=== PATIENT | female | born 1990 | race Caucasian/White ===

== ENCOUNTER 2021-06-25 18:39 | Inpatient (IN) | payer OTHER, SELFPAY ==
[2021-06-25] MEDS: traZODone HCL 100 MG TABLET 200 MG PO (21:12)
[2021-06-25] MEDS: Melatonin 3 MG TABLET 9 MG PO (21:13)
[2021-06-25] MEDS: Gabapentin 600 MG TABLET PO (21:13)
[2021-06-25 21:14] VITALS: BP 111/67; PULSE 81
[2021-06-25] MEDS: Prazosin HCL 1 MG CAPSULE 2 MG PO (21:14)
[2021-06-25 21:15] VITALS: BP 111/67; PULSE 81
[2021-06-25] MEDS: Propranolol HCL 20 MG TABLET PO (21:15)
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
[2021-06-26] MEDS: hydrOXYzine HCL 25 MG TABLET PO (00:17)
[2021-06-26] MEDS: traZODone HCL 100 MG TABLET 200 MG PO ×2 (03:52→20:09)
--- NOTE | 2021-06-26 05:26 | PC.NURSE ---
Patient up all shift pacing halls. At one point she was banging head and fist against kitchen windows. MD notified of behavior and was asked for something for sleep/agitation. He did not respond. Patient was medicated with Trazadone with good effect.
[2021-06-26 06:00] VITALS: BP 107/67; PULSE 107; RESP 18; O2SAT 98
[2021-06-26] MEDS: Cholecalciferol (Vitamin D3) 25 MCG TABLET 50 MCG PO (08:54)
[2021-06-26 08:55] VITALS: BP 107/67; PULSE 107
[2021-06-26] MEDS: Fludrocortisone Acetate 0.1 MG TABLET PO (08:55)
[2021-06-26] MEDS: Gabapentin 600 MG TABLET PO ×2 (08:55→20:10)
[2021-06-26] MEDS: Propranolol HCL 20 MG TABLET PO ×2 (08:55→20:14)
[2021-06-26] MEDS: Omeprazole 20 MG CAPSULE.DR PO (08:55)
[2021-06-26] MEDS: Sennosides 8.6 MG TABLET PO (08:55)
[2021-06-26] MEDS: ARIPiprazole 30 MG TABLET PO (08:55)
--- NOTE | 2021-06-26 09:58 | PC.NURSE ---
Amanda declined offer for nicotine patch and requested PRN nicotine gum.
[2021-06-26] MEDS: Nicotine Polacrilex 2 MG GUM BUCCAL (10:10)
[2021-06-26] MEDS: chlorproMAZINE HCl 25 MG TABLET PO ×2 (10:10→16:15)
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
[2021-06-26] MEDS: LORazepam 2 MG/ML VIAL IM (16:40)
[2021-06-26] MEDS: diphenhydrAMINE HCL 50 MG/ML VIAL IM (16:40)
[2021-06-26] MEDS: Haloperidol Lactate 5 MG/ML VIAL IM (16:40)
--- NOTE | 2021-06-26 17:46 | P.EN_ITS ---
Event Note Date of Service: 06/26/21 Event Note: Patient seen and M5, she had a medication restrained received Hald ol, and Ativan On examination patient awake alert, offers no acute complaints, talking in full sentences No respiratory distress noted
--- NOTE | 2021-06-26 18:17 | PC.NURSE ---
Pt was at the patient phones on a phone call when she started to bang her head on the kitchen windows. Unsure of the news she recieved that was upsetting. Staff attempted to re-direct, offered PRNs, and she pushed back stating get away from me! . Pt started to then punch the windows of the kitchen. Staff went hands on to stop her attempts to harm herself. Security was called up to assist. The medication reconciliation technician MD was notified and medications were ordered. Pt put in a 4 point restraint at 1625. Medications were administered at 1640 to the right and left deltoid. Vitals started and WNL. Pt released from restraints at 1655. In behavioral control. Hospitalist notified at 1650 and assessed within the hour. Will continue to monitor. Pt stated that she does not want us to contact anyone about the restraint.
[2021-06-26 20:08] VITALS: BP 113/58; PULSE 84
[2021-06-26] MEDS: Prazosin HCL 1 MG CAPSULE 2 MG PO (20:08)
[2021-06-26] MEDS: Melatonin 3 MG TABLET 9 MG PO (20:08)
[2021-06-26] MEDS: OXcarbazepine 300 MG TABLET PO (20:10)
[2021-06-26 20:14] VITALS: BP 101/64; PULSE 94
[2021-06-26 20:28] VITALS: BP 113/58; PULSE 84; TEMP 36.9
[2021-06-27] VITALS (7 sets, daily range): BP systolic 98–148; BP diastolic 62–82; PULSE 86–103; RESP 16; TEMP 35.8–36.6; O2SAT 96–97
[2021-06-27] MEDS: HaloperidoL 5 MG TABLET PO ×3 (02:11→15:06)
[2021-06-27] MEDS: LORazepam 1 MG TABLET 2 MG PO ×3 (02:11→15:05)
[2021-06-27] MEDS: Cholecalciferol (Vitamin D3) 25 MCG TABLET 50 MCG PO (08:03)
[2021-06-27] MEDS: OXcarbazepine 300 MG TABLET PO (08:03)
[2021-06-27] MEDS: Omeprazole 20 MG CAPSULE.DR PO (08:03)
[2021-06-27] MEDS: ARIPiprazole 30 MG TABLET PO (08:04)
[2021-06-27] MEDS: Fludrocortisone Acetate 0.1 MG TABLET PO (08:04)
[2021-06-27] MEDS: Propranolol HCL 20 MG TABLET PO ×3 (08:04→22:02)
[2021-06-27] MEDS: Sennosides 8.6 MG TABLET PO (08:04)
[2021-06-27] MEDS: Gabapentin 600 MG TABLET PO ×2 (08:04→21:58)
[2021-06-27] MEDS: Benztropine Mesylate 0.5 MG TABLET PO ×2 (08:13→15:06)
[2021-06-27 10:37] LABS: Cholesterol 129 mg/dL; HDL Cholesterol 57 mg/dL; LDL Cholesterol Calculated 64 mg/dl; Triglycerides 40 mg/dL
[2021-06-27] MEDS: Haloperidol Lactate 5 MG/ML VIAL IM (10:46)
[2021-06-27] MEDS: diphenhydrAMINE HCL 50 MG/ML VIAL IM (10:46)
[2021-06-27] MEDS: LORazepam 2 MG/ML VIAL IM ×2 (10:48→18:10)
[2021-06-27 10:57] LABS: Estimated Average Glucose 88 mg/dL; Hemoglobin A1c % 4.7 %
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
--- NOTE | 2021-06-27 10:59 | P.EN_ITS ---
Event Note Date of Service: 06/27/21 Event Note: pt superficially self harmed; difficult to redirect and then sudde nly became very dysregulated. Multiple attempts made to redirect, however, pt escalted and needed both physical and chemical restraint for safety. Given Haldol 5mg, ativan 2mg and bendryl 50mg IM
[2021-06-27 11:00] LABS: Thyroid Stimulating Hormone 0.54 uIU/mL (0.32-4.0)
[2021-06-27] MEDS: OLANZapine 5 MG TABLET PO (14:13)
[2021-06-27] MEDS: chlorproMAZINE HCl 100 MG TABLET PO (17:29)
--- NOTE | 2021-06-27 18:04 | PM.EVENT ---
Event Note Date of Service: 06/27/21 Event Note: pt again became agitated, unsafe and unable to redirected; pt needed IM medication. Tried IM Zyprexa 10mg and ativan 2mg IM since haldol only partially effective last time
[2021-06-27] MEDS: OLANZapine 10 MG VIAL IM (18:10)
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
[2021-06-27] MEDS: Melatonin 3 MG TABLET 9 MG PO (21:58)
[2021-06-27] MEDS: Prazosin HCL 1 MG CAPSULE PO (21:58)
[2021-06-27] MEDS: traZODone HCL 100 MG TABLET 200 MG PO (21:59)
[2021-06-28] MEDS: LORazepam 1 MG TABLET 2 MG PO ×2 (01:06→07:30)
[2021-06-28] MEDS: HaloperidoL 5 MG TABLET PO ×2 (01:06→07:25)
[2021-06-28] MEDS: traZODone HCL 50 MG TABLET PO (01:44)
[2021-06-28 06:00] VITALS: BP 98/60; PULSE 109; TEMP 36.4; O2SAT 98
[2021-06-28] MEDS: Acetaminophen 325 MG TABLET 650 MG PO (07:23)
[2021-06-28] MEDS: OLANZapine 5 MG TABLET PO ×2 (07:24→14:24)
[2021-06-28] MEDS: Sennosides 8.6 MG TABLET PO (07:24)
[2021-06-28] MEDS: Fludrocortisone Acetate 0.1 MG TABLET PO (07:24)
[2021-06-28] MEDS: Gabapentin 600 MG TABLET PO ×2 (07:24→19:39)
[2021-06-28] MEDS: Cholecalciferol (Vitamin D3) 25 MCG TABLET 50 MCG PO (07:25)
[2021-06-28] MEDS: ARIPiprazole 30 MG TABLET PO (07:25)
[2021-06-28] MEDS: Omeprazole 20 MG CAPSULE.DR PO (07:25)
--- NOTE | 2021-06-28 08:35 | PC.NURSE ---
restraint-patient was placed in 4 point restraint at 0800. On rising mood was stable and patient was responding well to staff. At change of shift a new patient observer was assigned to her care, a person older than her. Patient became verbally abusive to observer calling her names and when re directed attempted to shove a laundry hamper at her, following that behavior and when observer was being switched out patient went to group room end of hallway and pulled cover off of fire alarm setting alarm off. Patient continued with behavior hitting mera in hallway and then screen in room. Patient also threw trash can and kicked out at staff. Pt reporting ''I don't want a person watching me'' Verbally threatening to a female peer. Due to continued behavior was placed in restraints. Pt is currently in restraints and being assessed by psychiatrist.
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
--- NOTE | 2021-06-28 09:48 | PM.EVENT ---
Event Note Date of Service: 06/28/21 Event Note: Patient got agitated and dysregulated this morning needing physical restraint; she could not be redirected. However she was able to calm down without p.r.n. medications. Wreath And Garland Maker examined patient during and after and patient was able to return to baseline.
[2021-06-28 10:37] VITALS: BP 120/70; PULSE 85
[2021-06-28] MEDS: Propranolol HCL 20 MG TABLET PO ×3 (10:37→19:39)
[2021-06-28] MEDS: Methylphenidate HCl 5 MG TABLET PO ×2 (11:10→14:25)
[2021-06-28 14:25] VITALS: BP 108/62; PULSE 95
[2021-06-28 17:09] VITALS: BP 103/66; PULSE 93
[2021-06-28] MEDS: traZODone HCL 100 MG TABLET 200 MG PO ×2 (19:38→23:53)
[2021-06-28 19:39] VITALS: BP 103/66; PULSE 93
[2021-06-28] MEDS: Prazosin HCL 1 MG CAPSULE PO (19:39)
[2021-06-28] MEDS: Melatonin 3 MG TABLET 9 MG PO (19:40)
[2021-06-29] VITALS (9 sets, daily range): BP systolic 102–127; BP diastolic 60–90; PULSE 62–112; RESP 18–20; TEMP 36.6–36.7; O2SAT 97–99
[2021-06-29] MEDS: HaloperidoL 5 MG TABLET PO ×2 (02:23→17:28)
[2021-06-29] MEDS: LORazepam 1 MG TABLET 2 MG PO ×2 (02:23→17:28)
[2021-06-29] MEDS: hydrOXYzine HCL 25 MG TABLET PO (02:23)
[2021-06-29] MEDS: Gabapentin 600 MG TABLET PO ×2 (08:26→20:17)
[2021-06-29] MEDS: Sennosides 8.6 MG TABLET PO (08:26)
[2021-06-29] MEDS: Cholecalciferol (Vitamin D3) 25 MCG TABLET 50 MCG PO (08:26)
[2021-06-29] MEDS: OLANZapine 5 MG TABLET PO (08:26)
[2021-06-29] MEDS: Omeprazole 20 MG CAPSULE.DR PO (08:27)
[2021-06-29] MEDS: Methylphenidate HCl 5 MG TABLET PO ×3 (08:27→14:06)
[2021-06-29] MEDS: Fludrocortisone Acetate 0.1 MG TABLET PO (08:27)
[2021-06-29] MEDS: ARIPiprazole 30 MG TABLET PO (08:27)
[2021-06-29] MEDS: Propranolol HCL 20 MG TABLET PO ×3 (08:52→20:17)
[2021-06-29 09:06] LABS: Folate 10.8 ng/mL (> or = 4.0); Vitamin B12 328 pg/mL (200-900)
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
--- NOTE | 2021-06-29 15:21 | PM.EVENT ---
Event Note Date of Service: 06/27/21 Event Note: Patient was seen around 19:00pm Patient seen and examined and vitals are stable. Received Zyprexa 10 mg Ativan 2 mg for restrain-seen within 1 hour and patient seems to be alert oriented and moving all extremities and feeling fine, following commands and answering questions. Restrain paper signed
[2021-06-29] MEDS: Prazosin HCL 1 MG CAPSULE PO ×3 (17:06→20:18)
[2021-06-29] MEDS: Melatonin 3 MG TABLET 9 MG PO (20:15)
--- NOTE | 2021-06-29 21:19 | PM.EVENT ---
Event Note Date of Service: 06/29/21 Event Note: [id number] evaluation: Patient was agitated around 7:00 p.m. 06/29/2021. Patient was placed on four-point restraint. I went in to speak to the patient; denies any complaints/pain. Spoke To the RN patient safety precautions.
[2021-06-30] MEDS: LORazepam 1 MG TABLET 2 MG PO (03:18)
[2021-06-30] MEDS: HaloperidoL 5 MG TABLET PO (03:19)
[2021-06-30 06:00] VITALS: BP 102/57; PULSE 62; RESP 18; TEMP 36.2; O2SAT 98
[2021-06-30] MEDS: Omeprazole 20 MG CAPSULE.DR PO (06:51)
[2021-06-30] MEDS: OLANZapine 5 MG TABLET PO ×2 (08:51→14:26)
[2021-06-30] MEDS: Fludrocortisone Acetate 0.1 MG TABLET PO (08:51)
[2021-06-30] MEDS: Sennosides 8.6 MG TABLET PO (08:52)
[2021-06-30] MEDS: ARIPiprazole 30 MG TABLET PO (08:52)
[2021-06-30] MEDS: Cholecalciferol (Vitamin D3) 25 MCG TABLET 50 MCG PO (08:52)
[2021-06-30] MEDS: Gabapentin 600 MG TABLET PO ×2 (08:52→20:51)
[2021-06-30] MEDS: Methylphenidate HCl 5 MG TABLET PO ×3 (08:52→14:34)
[2021-06-30 10:29] VITALS: BP 94/56; PULSE 92
[2021-06-30 14:27] VITALS: BP 112/77; PULSE 98
[2021-06-30] MEDS: Propranolol HCL 20 MG TABLET PO ×2 (14:27→20:50)
[2021-06-30] MEDS: chlorproMAZINE HCl 100 MG TABLET PO (16:20)
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
[2021-06-30 18:00] VITALS: BP 105/69; PULSE 74; TEMP 37.3
[2021-06-30 20:49] VITALS: BP 105/69; PULSE 74
[2021-06-30] MEDS: Prazosin HCL 1 MG CAPSULE PO (20:49)
[2021-06-30 20:50] VITALS: BP 105/69; PULSE 74
[2021-06-30] MEDS: traZODone HCL 100 MG TABLET 200 MG PO (20:51)
[2021-06-30] MEDS: Melatonin 3 MG TABLET 9 MG PO (20:51)
[2021-07-01] MEDS: traZODone HCL 100 MG TABLET 200 MG PO ×2 (01:15→20:35)
[2021-07-01] MEDS: HaloperidoL 5 MG TABLET PO (04:03)
[2021-07-01] MEDS: LORazepam 1 MG TABLET 2 MG PO (04:03)
[2021-07-01 06:00] VITALS: BP 108/63; PULSE 83; TEMP 36.9; O2SAT 97
[2021-07-01] MEDS: Omeprazole 20 MG CAPSULE.DR PO (06:31)
[2021-07-01] MEDS: Fludrocortisone Acetate 0.1 MG TABLET PO (08:06)
[2021-07-01 08:07] VITALS: BP 108/62; PULSE 94
[2021-07-01] MEDS: Propranolol HCL 20 MG TABLET PO (08:07)
[2021-07-01] MEDS: ARIPiprazole 30 MG TABLET PO (08:08)
[2021-07-01] MEDS: OLANZapine 5 MG TABLET PO ×2 (08:08→15:07)
[2021-07-01] MEDS: Sennosides 8.6 MG TABLET PO (08:08)
[2021-07-01] MEDS: Cholecalciferol (Vitamin D3) 25 MCG TABLET 50 MCG PO (08:09)
[2021-07-01] MEDS: Methylphenidate HCl 5 MG TABLET PO (08:09)
[2021-07-01] MEDS: Gabapentin 600 MG TABLET PO ×2 (08:10→20:33)
--- NOTE | 2021-07-01 11:06 | P.PNPSI_ITS ---
Subjective Subjective Date of Service: 07/01/21 Reason For Visit: MDD Sing Episode Severe w/Psychotic Features Interim History: Patient approached music writer and shared that she was very proud of herself, saying she did not require any restraint last night; she also said that this morning she got an upsetting phone call however was able to remain in good control and was on flustered. Lead Customer Service Representative congratulated patient on her efforts. Lead Customer Service Representative and patient discussed medications and potential discharge. She agrees to discontinuing prazosin and instead increasing propranolol which she is already on to help with mood regulation (literature suggests that propranolol can be helpful for people with TBI.) . Patient also agrees to switch to Adderall from Ritalin to see if this can work just as well as she has been on long-acting Adderall in the past. Also discussed was whether or not p.r.n. Zyprexa or p.r.n. Thorazine is helpful for patient and whether Thorazine should replace schedule Zyprexa. Lead Customer Service Representative spoke with Dr. Roberson patient's outpatient psychiatrist who has known her for years. He agrees with medication regimen, including stimulant medication, agreeing that it can be helpful for both TBI and ADHD which he reports patient has. He does say however that if he is going to continue this med she is going to have to remain abstinent from cannabis and that he will require weekly drug screens at least initially. Dr. Roberson feels that patient's cannabis use definitely complicates and worsens her symptoms. He says that at time she can definitely get psychotic though it is unclear if she has an organic psychotic illness, bipolar, schizoaffective or if it is mood congruent. Mental Status Exam Mental Status Exam Narrative: ?Patient Appearance:?Appropriate Patient Orientation:?Person, Place, Time and Situation Level of Consciousness:?Alert Patient Behavior:?Appropriate, Talkative, Cooperative, Distractible and Good Eye Contact Mood Description:? im good Affect Description:?labile; affect euthymic, but pt can suddenly cry if triggered Patient Cognition Impaired:?No Ability to Follow Directions:?Good Speech Pattern:?Spontaneous Speech Memory Description:?Episodic Impaired Hallucinations:?denies Delusions:?Paranoid Ideation: denies Thought Process:?currently linear and goal oriented; can become Racing and Distracted Thought Content:?denies SI/HI; TC on treatment Abnormal Motor Activity Signs and Symptoms:?none Judgment/insight:?Fair impulse control: poor (at baseline) Diagnostics Vital Signs (24Hr): Vital Signs - 24 hr 06/30/21 14:27 06/30/21 18:00 06/30/21 20:49 Temperature 99.1 F Pulse Rate 98 74 74 Blood Pressure 112/77 105/69 105/69 Pulse Oximetry 06/30/21 20:50 07/01/21 06:00 07/01/21 08:07 Temperature 98.4 F Pulse Rate 74 83 94 Blood Pressure 105/69 108/63 108/62 Pulse Oximetry 97 Medications Medications Current Medications Acetaminophen (Acetaminophen 325 Mg Tablet) 650 mg PO Q6H PRN PRN Reason: Headache/Pain Mild Scale (1-3) Last Admin: 06/28/21 07:23 Dose: 650 mg Documented by: Al Hydroxide/Mg Hydroxide (Magnesium Hydrox/Alum Hydrox 30 Ml Oral.Susp) 30 ml PO Q6H PRN PRN Reason: Heartburn/Nausea Amphetamine/Dextroamphetamine (Amphetamine Mixed Salts 10 Mg Tablet) 5 mg PO TID@0800,1130,1500 [facility] Aripiprazole (Aripiprazole 30 Mg Tablet) 30 mg PO DAILY [facility] Last Admin: 07/01/21 08:08 Dose: 30 mg Documented by: Benztropine Mesylate (Benztropine Mesylate 0.5 Mg Tablet) 0.5 mg PO TID PRN PRN Reason: Extrapyramidal Effects Last Admin: 06/27/21 15:06 Dose: 0.5 mg Documented by: Chlorpromazine HCl (Chlorpromazine Hcl 100 Mg Tablet) 100 mg PO TID PRN PRN Reason: anxiety/restlessness Last Admin: 06/30/21 16:20 Dose: 100 mg Documented by: Fludrocortisone Acetate (Fludrocortisone Acetate 0.1 Mg Tablet) 0.1 mg PO DAILY [facility] Last Admin: 07/01/21 08:06 Dose: 0.1 mg Documented by: Gabapentin (Gabapentin 600 Mg Tablet) 600 mg PO BID [facility] Last Admin: 07/01/21 08:10 Dose: 600 mg Documented by: Hydroxyzine HCl (Hydroxyzine Hcl 25 Mg Tablet) 25 mg PO Q6H PRN PRN Reason: Anxiety Last Admin: 06/29/21 02:23 Dose: 25 mg Documented by: Lorazepam (Lorazepam 1 Mg Tablet) 2 mg PO Q4H PRN PRN Reason: agitation Last Admin: 07/01/21 04:03 Dose: 2 mg Documented by: Magnesium Hydroxide (Milk Of Magnesia 30 Ml Oral.Susp) 30 ml PO DAILY PRN PRN Reason: Constipation Melatonin (Melatonin 3 Mg Tablet) 9 mg PO BEDTIME [facility] Last Admin: 06/30/21 20:51 Dose: 9 mg Documented by: Nicotine Polacrilex (Nicotine Polacrilex 2 Mg Gum) 2 mg BUCCAL Q1H PRN PRN Reason: Nicotine Cravings Last Admin: 06/26/21 10:10 Dose: 2 mg Documented by: Olanzapine (Olanzapine 5 Mg Tablet) 5 mg PO BID@0830,1430 [facility] Last Admin: 07/01/21 08:08 Dose: 5 mg Documented by: Omeprazole (Omeprazole 20 Mg Capsule.Dr) 20 mg PO DAILY@0630 [facility] Last Admin: 07/01/21 06:31 Dose: 20 mg Documented by: Ondansetron HCl (Ondansetron Odt 4 Mg Tab.Rapdis) 4 mg TRANSLINGU Q6H PRN PRN Reason: Nausea Propranolol HCl (Propranolol Hcl 10 Mg Tablet) 30 mg PO TID [facility]; Protocol Senna (Sennosides 8.6 Mg Tablet) 8.6 mg PO DAILY [facility] Last Admin: 07/01/21 08:08 Dose: 8.6 mg Documented by: Trazodone HCl (Trazodone Hcl 100 Mg Tablet) 200 mg PO BEDTIME [facility] Last Admin: 06/30/21 20:51 Dose: 200 mg Documented by: Vitamin D (Cholecalciferol (Vitamin D3) 25 Mcg Tablet) 50 mcg PO DAILY [facility] Last Admin: 07/01/21 08:09 Dose: 50 mcg Documented by: Allergies Allergies Allergy/AdvReac Type Severity Reaction Status Date / Time fluvoxamine [From Luvox] Allergy Unknown Unknown Verified 06/26/21 16:43 lamotrigine [From Lamictal] Allergy Unknown unk Verified 06/26/21 16:27 latex Allergy Unknown unk Verified 06/26/21 16:44 levothyroxine Allergy Unknown unk Verified 06/26/21 16:45 levothyroxine sodium Allergy Unknown unk Verified 06/26/21 16:26 [From Levoxyl] paroxetine [From Paxil] Allergy Unknown unk Verified 06/26/21 16:26 pollen extracts Allergy Unknown unk Verified 06/26/21 16:45 red dye Allergy Unknown Unknown Verified 06/26/21 16:44 Assessment & Plan Assessment & Plan (1) Schizoaffective disorder, bipolar type: Status: Acute Code(s): F25.0 - Schizoaffective disorder, bipolar type (2) PTSD (post-traumatic stress disorder): Status: Chronic Code(s): F43.10 - Post-traumatic stress disorder, unspecified (3) TBI (traumatic brain injury): Status: Suspected Code(s): S06.9X9A - Unspecified intracranial injury with loss of consciousness of unspecified duration, initial encounter Assessment and Plan: IMPRESSION: 30 yo female, transfer from crisis services/respite with reports of SI-passive, significant anxiety and behavioral dyscontrol. Pt reports she is not able to identify specific precipitants. Call into pt's prescriber Alexey Hodges [phone] who is not in today, however his office will have him make a connection on 06/29. -past trauma, likely complex -ADHD -TBI? instances of head trauma; intellectual disability? -at baseline, pt intermittently gets dysregulated and assaultive -Currently it is unclear to this music writer if patient actually has schizoaffective/bipolar or if her episodes are due to history of trauma being re-triggered, combined with ADHD and TBI. Of Course it could also be both. She says that she will do fine for for 5 months and then lose control and become another person she does not want to become. However, it seems that when she gets dysregulated, it's seems to be due to a build up of relational problems that eventually explodes, rather then a discrete episode. Currently, pt has no symptoms of queenie and dysregulation has been situational Hospital course: -Over weekend Patient became severely agitated multiple times, dissociating, and needing physical and chemical restraint -Patient seems to dissociate during times of agitation, regressing to child like persona, screaming and crying do not feed me to the sharks. Patient does not remember much of the details surrounding her agitation and restraint -Patient reports that in the past when she was on Ritalin she did well and thinks that it will help her better control her behaviors and impulse control while on the unit; given that nothing else has helped thus far, music writer agrees to trial. She said she was on Ritalin as a child and last year as an adult, it only being stopped when she entered a partial program the did not allow controlled substances. -In the course of discussion patient shared how she has had a history of more than 1 trauma to the head where she has become on conscious, making TBI a possible diagnosis which specially combined with ADHD and trauma would help explain patient's impulse control. -patient reports she did best on Abilify, gabapentin, propranolol, trazodone and Ritalin. -Lead Customer Service Representative will continue with Zyprexa since that is the only thing that seemed to help calm down. Will also leave other PRNs in there to help further decide which PRNs help the past since she has become severely agitated needing restraints for safety multiple times a day. -once on Tuesday, pt needed physical restraint but was able to calm down w/ time, verbal redirection and did not need chemical restraint -06/30 patient required restraint last night however has new plan to help her stay stable and has reached out to staff to help her work on this plan (be more aware of her body's signals that she is ramping up and take a p.r.n. and shower).? Lead Customer Service Representative finds that patient is sincerely trying to have better control over her behaviors; given her TBI, trauma and historic struggles with self regulation it is likely the patient will continue to intermittently lose control however this seems to represent her baseline. -patient has remained stable all day yesterday, last night and this morning despite some rather triggering events. Patient is rightfully proud of herself. She agrees to some medication changes discussed(see below). Plan: Diagnostics SWITCH to Adderall 5mg TID for impulse control, hx of ADHD, and possible TBI; at [facility], all meds handled/distributed by staff, lowering abuse risk; outpt Dr. Roberson agrees to continue Dc Ritalin Continue Zyprexa 5 mg b.i.d., however will consider replacing this with Thorazine which she takes as a p.r.n. and seems to be helpful Discontinue prazosin Increase propranolol all to 30 mg t.i.d. 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
[2021-07-01] MEDS: Amphetamine Mixed Salts 10 MG TABLET 5 MG PO ×2 (12:19→15:48)
[2021-07-01 15:00] VITALS: BP 114/67; PULSE 95; RESP 16; TEMP 36.4; O2SAT 98
[2021-07-01 15:04] VITALS: BP 114/67; PULSE 95
[2021-07-01] MEDS: Propranolol HCL 10 MG TABLET 30 MG PO ×2 (15:04→20:32)
[2021-07-01 18:00] VITALS: BP 100/61; PULSE 88
[2021-07-01] MEDS: chlorproMAZINE HCl 100 MG TABLET PO (18:19)
[2021-07-01 20:32] VITALS: BP 100/61; PULSE 88
[2021-07-01] MEDS: Melatonin 3 MG TABLET 9 MG PO (20:33)
[2021-07-02] VITALS (8 sets, daily range): BP systolic 90–121; BP diastolic 55–70; PULSE 70–120; RESP 16–20; TEMP 36–36.8; O2SAT 97–98
[2021-07-02] MEDS: hydrOXYzine HCL 25 MG TABLET PO (00:26)
[2021-07-02] MEDS: chlorproMAZINE HCl 100 MG TABLET PO ×3 (00:26→22:32)
[2021-07-02] MEDS: Omeprazole 20 MG CAPSULE.DR PO (05:54)
[2021-07-02] MEDS: Gabapentin 600 MG TABLET PO ×2 (08:21→20:25)
[2021-07-02] MEDS: ARIPiprazole 30 MG TABLET PO (08:21)
[2021-07-02] MEDS: OLANZapine 5 MG TABLET PO ×2 (08:21→15:08)
[2021-07-02] MEDS: Fludrocortisone Acetate 0.1 MG TABLET PO (08:21)
[2021-07-02] MEDS: Amphetamine Mixed Salts 10 MG TABLET 5 MG PO ×3 (08:21→15:07)
[2021-07-02] MEDS: Cholecalciferol (Vitamin D3) 25 MCG TABLET 50 MCG PO (08:22)
[2021-07-02] MEDS: Sennosides 8.6 MG TABLET PO (08:22)
[2021-07-02] MEDS: Propranolol HCL 10 MG TABLET 30 MG PO ×2 (15:08→20:25)
[2021-07-02] MEDS: traZODone HCL 100 MG TABLET 200 MG PO (20:25)
[2021-07-02] MEDS: Melatonin 3 MG TABLET 9 MG PO (20:25)
--- NOTE | 2021-07-02 22:33 | PC.NURSE ---
Patient became agitated after roommate woke her with an outburst. Patient requested medication for agitation. Reviewed options, patient requested Thorazine. Medication givenm as requested.
--- NOTE | 2021-07-02 22:43 | HO.PSYCHPN ---
Subjective Subjective Date of Service: 07/02/21 Reason For Visit: MDD Sing Episode Severe w/Psychotic Features Interim History: pt in good mood; she continues to deny any SI/HI or AVH. Pt shared that she is very ready to discharge and that it's getting difficult to tolerate being on a locked unit; nevertheless she reports that she is committed to remaining in good behavioral control which she has done for days now despite multiple triggers including having her PRN medication accidentally changed, an upsetting phone call and high acuity unit. pt has bright affect and feels meds are working well. She does however agree to exchange Zyprexa in favor of Thorazine. Mental Status Exam Mental Status Exam Narrative: Patient Appearance:?Appropriate Patient Orientation:?Person, Place, Time and Situation Level of Consciousness:?Alert Patient Behavior:?Appropriate, Talkative, Cooperative, Distractible and Good Eye Contact Mood Description:? good Affect Description:?congruent Patient Cognition Impaired:?No Ability to Follow Directions:?Good Speech Pattern:?Spontaneous Speech Memory Description:?Episodic Impaired Hallucinations:?denies Delusions:?Paranoid Ideation: denies Thought Process:?currently linear and goal oriented; can become Racing and Distracted Thought Content:?denies SI/HI; TC on treatment Abnormal Motor Activity Signs and Symptoms:?none Judgment/insight:?Fair impulse control: fair Diagnostics Vital Signs (24Hr): Vital Signs - 24 hr 07/02/21 06:00 07/02/21 08:27 07/02/21 11:01 Temperature 96.8 F 97 F Pulse Rate 70 71 71 Respiratory Rate 16 16 Blood Pressure 90/55 L 94/65 94/65 Pulse Oximetry 97 97 07/02/21 15:08 07/02/21 15:13 07/02/21 17:17 Temperature 98.2 F Pulse Rate 120 H 120 H 118 H Respiratory Rate 20 Blood Pressure 121/57 L 121/57 L 107/67 Pulse Oximetry 98 07/02/21 19:29 07/02/21 20:25 Temperature Pulse Rate 92 82 Respiratory Rate Blood Pressure 102/70 Pulse Oximetry Medications Medications Current Medications Acetaminophen (Acetaminophen 325 Mg Tablet) 650 mg PO Q6H PRN PRN Reason: Headache/Pain Mild Scale (1-3) Last Admin: 06/28/21 07:23 Dose: 650 mg Documented by: Al Hydroxide/Mg Hydroxide (Magnesium Hydrox/Alum Hydrox 30 Ml Oral.Susp) 30 ml PO Q6H PRN PRN Reason: Heartburn/Nausea Amphetamine/Dextroamphetamine (Amphetamine Mixed Salts 10 Mg Tablet) 5 mg PO TID@0800,1130,1500 [facility] Last Admin: 07/02/21 15:07 Dose: 5 mg Documented by: Aripiprazole (Aripiprazole 30 Mg Tablet) 30 mg PO DAILY [facility] Last Admin: 07/02/21 08:21 Dose: 30 mg Documented by: Benztropine Mesylate (Benztropine Mesylate 0.5 Mg Tablet) 0.5 mg PO TID PRN PRN Reason: Extrapyramidal Effects Last Admin: 06/27/21 15:06 Dose: 0.5 mg Documented by: Chlorpromazine HCl (Chlorpromazine Hcl 25 Mg Tablet) 50 mg PO BID@0830,1430 [facility] Chlorpromazine HCl (Chlorpromazine Hcl 100 Mg Tablet) 100 mg PO BID PRN PRN Reason: agitation/anxiety Last Admin: 07/02/21 22:32 Dose: 100 mg Documented by: Fludrocortisone Acetate (Fludrocortisone Acetate 0.1 Mg Tablet) 0.1 mg PO DAILY [facility] Last Admin: 07/02/21 08:21 Dose: 0.1 mg Documented by: Gabapentin (Gabapentin 600 Mg Tablet) 600 mg PO BID [facility] Last Admin: 07/02/21 20:25 Dose: 600 mg Documented by: Hydroxyzine HCl (Hydroxyzine Hcl 25 Mg Tablet) 25 mg PO Q6H PRN PRN Reason: Anxiety Last Admin: 07/02/21 00:26 Dose: 25 mg Documented by: Magnesium Hydroxide (Milk Of Magnesia 30 Ml Oral.Susp) 30 ml PO DAILY PRN PRN Reason: Constipation Melatonin (Melatonin 3 Mg Tablet) 9 mg PO BEDTIME [facility] Last Admin: 07/02/21 20:25 Dose: 9 mg Documented by: Nicotine Polacrilex (Nicotine Polacrilex 2 Mg Gum) 2 mg BUCCAL Q1H PRN PRN Reason: Nicotine Cravings Last Admin: 06/26/21 10:10 Dose: 2 mg Documented by: Omeprazole (Omeprazole 20 Mg Capsule.Dr) 20 mg PO DAILY@0630 [facility] Last Admin: 07/02/21 05:54 Dose: 20 mg Documented by: Ondansetron HCl (Ondansetron Odt 4 Mg Tab.Rapdis) 4 mg TRANSLINGU Q6H PRN PRN Reason: Nausea Propranolol HCl (Propranolol Hcl 10 Mg Tablet) 30 mg PO TID [facility]; Protocol Last Admin: 07/02/21 20:25 Dose: 30 mg Documented by: Senna (Sennosides 8.6 Mg Tablet) 8.6 mg PO DAILY [facility] Last Admin: 07/02/21 08:22 Dose: 8.6 mg Documented by: Trazodone HCl (Trazodone Hcl 100 Mg Tablet) 200 mg PO BEDTIME [facility] Last Admin: 07/02/21 20:25 Dose: 200 mg Documented by: Trazodone HCl (Trazodone Hcl 100 Mg Tablet) 100 mg PO BEDTIME PRN PRN Reason: insomnia Vitamin D (Cholecalciferol (Vitamin D3) 25 Mcg Tablet) 50 mcg PO DAILY [facility] Last Admin: 07/02/21 08:22 Dose: 50 mcg Documented by: Allergies Allergies Allergy/AdvReac Type Severity Reaction Status Date / Time fluvoxamine [From Luvox] Allergy Unknown Unknown Verified 06/26/21 16:43 lamotrigine [From Lamictal] Allergy Unknown unk Verified 06/26/21 16:27 latex Allergy Unknown unk Verified 06/26/21 16:44 levothyroxine Allergy Unknown unk Verified 06/26/21 16:45 levothyroxine sodium Allergy Unknown unk Verified 06/26/21 16:26 [From Levoxyl] paroxetine [From Paxil] Allergy Unknown unk Verified 06/26/21 16:26 pollen extracts Allergy Unknown unk Verified 06/26/21 16:45 red dye Allergy Unknown Unknown Verified 06/26/21 16:44 Assessment & Plan Assessment & Plan (1) Schizoaffective disorder, bipolar type: Status: Acute Code(s): F25.0 - Schizoaffective disorder, bipolar type (2) PTSD (post-traumatic stress disorder): Status: Chronic Code(s): F43.10 - Post-traumatic stress disorder, unspecified (3) TBI (traumatic brain injury): Status: Suspected Code(s): S06.9X9A - Unspecified intracranial injury with loss of consciousness of unspecified duration, initial encounter Assessment and Plan: IMPRESSION: 30 yo female, transfer from crisis services/respite with reports of SI-passive, significant anxiety and behavioral dyscontrol. Pt reports she is not able to identify specific precipitants. Call into pt's prescriber Alexey Greenr [phone] who is not in today, however his office will have him make a connection on 06/29. -past trauma, likely complex -ADHD -TBI? instances of head trauma; intellectual disability? -at baseline, pt intermittently gets dysregulated and assaultive -Currently it is unclear to this securities underwriter if patient actually has schizoaffective/bipolar or if her episodes are due to history of trauma being re-triggered, combined with ADHD and TBI. Of Course it could also be both. She says that she will do fine for for 5 months and then lose control and become another person she does not want to become. However, it seems that when she gets dysregulated, it's seems to be due to a build up of relational problems that eventually explodes, rather then a discrete episode. Currently, pt has no symptoms of queenie and dysregulation has been situational Hospital course: -Over weekend Patient became severely agitated multiple times, dissociating, and needing physical and chemical restraint -Patient seems to dissociate during times of agitation, regressing to child like persona, screaming and crying do not feed me to the sharks. Patient does not remember much of the details surrounding her agitation and restraint -Patient reports that in the past when she was on Ritalin she did well and thinks that it will help her better control her behaviors and impulse control while on the unit; given that nothing else has helped thus far, securities underwriter agrees to trial. She said she was on Ritalin as a child and last year as an adult, it only being stopped when she entered a partial program the did not allow controlled substances. -In the course of discussion patient shared how she has had a history of more than 1 trauma to the head where she has become on conscious, making TBI a possible diagnosis which specially combined with ADHD and trauma would help explain patient's impulse control. -patient reports she did best on Abilify, gabapentin, propranolol, trazodone and Ritalin. -High Speed Operator will continue with Zyprexa since that is the only thing that seemed to help calm down. Will also leave other PRNs in there to help further decide which PRNs help the past since she has become severely agitated needing restraints for safety multiple times a day. -once on Tuesday, pt needed physical restraint but was able to calm down w/ time, verbal redirection and did not need chemical restraint -06/30 patient required restraint last night however has new plan to help her stay stable and has reached out to staff to help her work on this plan (be more aware of her body's signals that she is ramping up and take a p.r.n. and shower).? High Speed Operator finds that patient is sincerely trying to have better control over her behaviors; given her TBI, trauma and historic struggles with self regulation it is likely the patient will continue to intermittently lose control however this seems to represent her baseline. -patient has remained stable all day yesterday, last night and this morning despite some rather triggering events. Patient is rightfully proud of herself. She agrees to some medication changes discussed(see below). -pt continues to remain stable and in good behavioral control for days now; she is in good mood, w/out any SI/HI or AVH, future oriented and has been making good use of therapeutic resources on the unit. Patient is asking for discharge. She is not in imminent risk for harm to self or others and does not rise to the level of involuntary commitment. Plan: Diagnostics SWITCH to Adderall 5mg TID for impulse control, hx of ADHD, and possible TBI; at residential, all meds handled/distributed by staff, lowering abuse risk; outpt Dr. Roberson agrees to continue Dc Ritalin dc zyprexa add thorazine 50mg BID (and 100mg bid prn) Discontinue prazosin Increase propranolol all to 30 mg t.i.d. 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
--- NOTE | 2021-07-02 23:52 | PM.PSYDC ---
DS: Providers Provider Date of Service: 07/03/21 Date of admission: 06/25/21 18:39 Date of discharge: 07/03/21 Primary care physician: Unknown Physician Attending physician on admission: Nano Ortega Consults: 06/26/21 09:50 Consult to Hospitalist Routine Consulting Provider: Hospitalist Reason For Exam: Transfer from another hospital, H&P. Attending physician on discharge: Jorge Ambriz DS: Diagnosis Discharge Diagnosis (1) Schizoaffective disorder, bipolar type: Status: Acute (2) PTSD (post-traumatic stress disorder): Status: Chronic (3) TBI (traumatic brain injury): Status: Suspected DS: Medications Discharge Medications Home Medications: Home Medications Medication Instructions Recorded Confirmed aripiprazole 30 mg tablet 1 tab PO BEDTIME 06/26/21 06/26/21 atomoxetine 40 mg capsule 40 mg PO BID 06/26/21 06/26/21 cholecalciferol (vitamin D3) 50 2,000 unit PO DAILY 06/26/21 06/26/21 mcg (2,000 unit) capsule (Vitamin D3) fludrocortisone 0.1 mg tablet 1 tab PO DAILY 06/26/21 06/26/21 gabapentin 600 mg tablet 600 mg PO BID 06/26/21 06/26/21 gabapentin 600 mg tablet 600 mg PO DAILY PRN 06/26/21 06/26/21 medroxyprogesterone 150 mg/mL 1 ml IM [id number] 06/26/21 06/26/21 intramuscular syringe melatonin 5 mg tablet 2 tab PO BEDTIME 06/26/21 06/26/21 naproxen sodium 220 mg tablet 2 tab PO BID PRN 06/26/21 06/26/21 pantoprazole 40 mg tablet,delayed 1 tab PO BID 06/26/21 06/26/21 release propranolol 20 mg tablet 1 tab PO TID 06/26/21 06/26/21 trazodone 50 mg tablet 4 tab PO BEDTIME 06/26/21 06/26/21 Previous Rx's Medication Instructions Recorded dextroamphetamine-amphetamine ER 30 mg PO DAILY 30 Days #30 cap 07/02/21 30 mg 24hr capsule,extend release (Adderall XR) Mental Status Exam Mental Status Exam Narrative: ?Patient Appearance:?Appropriate Patient Orientation:?Person, Place, Time and Situation Level of Consciousness:?Alert Patient Behavior:?Appropriate, Talkative, Cooperative, Distractible and Good Eye Contact Mood Description:? good Affect Description:?congruent Patient Cognition Impaired:?No Ability to Follow Directions:?Good Speech Pattern:?Spontaneous Speech Hallucinations:?denies Delusions:?Paranoid Ideation: denies Thought Process:?currently linear and goal oriented; can become Racing and Distracted Thought Content:?denies SI/HI; TC on treatment Abnormal Motor Activity Signs and Symptoms:?none Judgment/insight:?Fair impulse control: fair Data Data Completed and Pending Completed studies during hospitalization [Text1]: 06/27/21 06/27/21 06/27/21 09:38 09:38 09:38 Estimat Average Glucose 88 Hemoglobin A1c % 4.7 Triglycerides 40 Cholesterol 129 LDL Cholesterol, Calc 64 HDL Cholesterol 57 Vitamin B12 328 Folate 10.8 TSH 0.54 DS: Summary Hospital Course Hospital Course: 30 yo female, transfer from crisis services/respite with reports of SI-passive, significant anxiety and behavioral dyscontrol. Pt reports she is not able to identify specific precipitants. -past trauma, likely complex -ADHD -TBI instances of head trauma Hospital course: Patient on CV. For the 1st few days of admission,patient became severely agitated multiple times, dissociating, and needing physical and chemical restraint during which time she seemed to dissociate, regressing to child-like persona, screaming and crying do not feed me to the sharks. Patient does not remember much of the details surrounding her agitation and restraint. When calm and in behavioral control however patient was very cooperative, friendly and forthcoming during interviews. She talked about her history of trauma and it's triggers and pt worked effectively to use coping tools during these times. Adderall was started since patient has a history of ADHD and TBI and patient reported this considerably helped her remain calm and focused. Home Aide spoke to her outpatient psychiatric provider who agreed with starting stimulant as long as she agreed to discontinue using cannabis, to which she wholeheartedly embraced. Thorazine was added as a p.r.n. which was also helpful and Zyprexa discontinued as a p.r.n. patient's propranolol was increased to 30 mg since this medication is frequently helpful in people with a history of a TBI. On this admission patient was started on Trileptal however this was discontinued, in favor of Thorazine p.r.n.. Patient became stable and going forward was able to remains calm and in good behavioral control despite several triggering events including upsetting phone calls, and other triggers on the unit. Patient asked for discharge which was navigated with social work and her usp. Patient was in a good mood, without any SI or HI, cooperative, in good behavioral control, involved in her treatment and approaching her psychiatric illness with insight. 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 At this time, headline writer agrees that patient had reached maximal benefit from this inpatient admission and further treatments are appropriate for the outpatient setting. She is not in imminent risk of harm to self or others and does not meet criteria for involuntary commitment. Her request for discharge honored.? ? Status at Discharge Functional status at discharge: independent ambulation Overall status at discharge: patient is back to baseline Time Spent with Patient Time attestation: Total time spent providing and/or coordinating discharge services: Time spent: Greater than 30 minutes Discharge Plan Discharge Patient Disposition: Home, Self-Care Discharge Diagnosis: schizoaffective, bipolar type Referrals: [facility] [Other] - 07/03/21 3:00 pm (You will be discharging to the [facility] as a [id number] referral) [facility] [Other] (walk in if needed ) Discharge Medications: New propranolol 10 mg Tablet 30 mg PO TID Qty: 0 RF: 0 benztropine 0.5 mg Tablet 0.5 mg PO TID PRN (Reason: Extrapyramidal Effects) Qty: 0 RF: 0 chlorpromazine 100 mg Tablet 100 mg PO BID PRN (Reason: agitation/anxiety) Qty: 0 RF: 0 trazodone 100 mg Tablet 200 mg PO BEDTIME Qty: 0 RF: 0 trazodone 100 mg Tablet 100 mg PO BEDTIME PRN (Reason: insomnia) Qty: 0 RF: 0 chlorpromazine 25 mg Tablet 50 mg PO BID@0830,1430 Qty: 0 RF: 0 dextroamphetamine-amphetamine [Adderall XR] 30 mg capsule,extended release 24hr 30 mg PO DAILY 30 Days Qty: 30 RF: 0 benztropine 0.5 mg tablet 0.5 mg PO TID PRN (Reason: EPS) 30 Days Qty: 90 RF: 0 chlorpromazine 100 mg tablet 100 mg PO BID PRN (Reason: AGITATION/ANXIETY) 30 Days Qty: 60 RF: 0 chlorpromazine 25 mg tablet 50 mg PO BID 30 Days Qty: 120 RF: 0 dextroamphetamine-amphetamine [Adderall XR] 30 mg capsule,extended release 24hr 30 mg PO DAILY 30 Days Qty: 30 RF: 0 propranolol 10 mg tablet 10 mg PO TID Qty: 90 RF: 0 trazodone 100 mg tablet 200 mg PO BEDTIME Qty: 90 RF: 0 Continued gabapentin 600 mg tablet 600 mg PO BID RF: 0 pantoprazole 40 mg tablet,delayed release (DR/EC) 1 tab PO BID Qty: 30 RF: 0 fludrocortisone 0.1 mg tablet 1 tab PO DAILY Qty: 30 RF: 0 medroxyprogesterone 150 mg/mL syringe 1 ml IM [id number] Qty: 150 RF: 0 aripiprazole 30 mg tablet 1 tab PO BEDTIME Qty: 30 RF: 0 melatonin 5 mg tablet 2 tab PO BEDTIME Qty: 60 RF: 0 cholecalciferol (vitamin D3) [Vitamin D3] 50 mcg (2,000 unit) capsule 2,000 unit PO DAILY Qty: 30 RF: 0 Changed naproxen sodium 220 mg tablet 220 mg PO BID PRN (Reason: Breakthrough Pain, Moderate) Qty: 60 RF: 0 Discontinued gabapentin 600 mg tablet 600 mg PO DAILY PRN (Reason: Pain) RF: 0 trazodone 50 mg tablet 4 tab PO BEDTIME RF: 0 propranolol 20 mg tablet 1 tab PO TID RF: 0 atomoxetine 40 mg capsule 40 mg PO BID RF: 0 Discharge Orders: Discharge Order (Routine); Ordered 07/03/21 Ordered By: Jackie Paris Diet: regular diet Activity on Discharge: As tolerated Stand Alone Forms: Patient Portal Discharge page, Community Support Care Plan Goals: Maintain mood and safe behaviors Take medications as prescribed Continue to abstain from cannabis Practice coping skills Continue with outpatient providers and reach out to them as needed Health Concerns: Mood stability and behaviors Postural orthostatic tachycardia syndrome Plan of Treatment: Follow up with your PCP and psychiatric provider regarding above concerns Take medications as prescribed Assessment: Patient was interviewed prior to discharge and found to be fully oriented and without any SI or HI. Patient has insight and demonstrates good judgment in terms of wanting to pursue treatment. Patient is not in imminent risk of harm to self or others and has a safety plan that includes presenting to the closest ER or calling 911 i f feeling unsafe.? Patient has been observed closely by nursing and unit staff throughout admission; initially, patient became dysregulated has not engaged in any behaviors that suggest dangerousness to self or others and has demonstrated appropriate behaviors and impulse control. Discharge Date/Time: 07/03/21 12:50
[2021-07-03] MEDS: traZODone HCL 100 MG TABLET PO ×2 (00:08→03:41)
[2021-07-03 06:00] VITALS: BP 105/58; PULSE 63; RESP 16; TEMP 36.2; O2SAT 97
[2021-07-03] MEDS: Omeprazole 20 MG CAPSULE.DR PO (06:15)
[2021-07-03] MEDS: Fludrocortisone Acetate 0.1 MG TABLET PO (09:10)
[2021-07-03 09:11] VITALS: BP 103/63; PULSE 107
[2021-07-03] MEDS: Gabapentin 600 MG TABLET PO (09:11)
[2021-07-03] MEDS: Propranolol HCL 10 MG TABLET 30 MG PO (09:11)
[2021-07-03] MEDS: chlorproMAZINE HCl 25 MG TABLET 50 MG PO (09:12)
[2021-07-03] MEDS: Sennosides 8.6 MG TABLET PO (09:12)
[2021-07-03] MEDS: Cholecalciferol (Vitamin D3) 25 MCG TABLET 50 MCG PO (09:13)
[2021-07-03] MEDS: ARIPiprazole 30 MG TABLET PO (09:13)
[2021-07-03] MEDS: Amphetamine Mixed Salts 10 MG TABLET 5 MG PO ×2 (09:24→12:28)
[2021-07-03 11:29] LABS: COVID-19 Test Negative (Negative); IDNOW Serial# 9DD0AD1C
--- NOTE | 2021-07-03 22:14 | HO.PSYCHPN ---
Subjective Subjective Date of Service: 07/03/21 Reason For Visit: MDD Sing Episode Severe w/Psychotic Features Interim History: pt not assualtive states safe to be discharged to respite Mental Status Exam Mental Status Exam Narrative: Patient Appearance:?Appropriate Patient Orientation:?Person, Place, Time and Situation Level of Consciousness:?Alert Patient Behavior:?Appropriate, Talkative, Cooperative, Distractible and Good Eye Contact Mood Description:? good Affect Description:?congruent Patient Cognition Impaired:?No Ability to Follow Directions:?Good Speech Pattern:?Spontaneous Speech Memory Description:?Episodic Impaired Hallucinations:?denies Delusions:?Paranoid Ideation: denies Thought Process:?currently linear and goal oriented; can become Racing and Distracted Thought Content:?denies SI/HI; TC on treatment Abnormal Motor Activity Signs and Symptoms:?none Judgment/insight:?Fair impulse control: fair Diagnostics Vital Signs (24Hr): Vital Signs - 24 hr 07/03/21 06:00 07/03/21 09:11 Temperature 97.1 F Pulse Rate 63 107 H Respiratory Rate 16 Blood Pressure 105/58 L 103/63 Pulse Oximetry 97 Labs Labs: Laboratory Results - last 48 hr 07/03/21 11:07 COVID-19 ([facility]) Negative COVID-19 Clin Com See Note Medications Allergies Allergies Allergy/AdvReac Type Severity Reaction Status Date / Time fluvoxamine [From Luvox] Allergy Unknown Unknown Verified 06/26/21 16:43 lamotrigine [From Lamictal] Allergy Unknown unk Verified 06/26/21 16:27 latex Allergy Unknown unk Verified 06/26/21 16:44 levothyroxine Allergy Unknown unk Verified 06/26/21 16:45 levothyroxine sodium Allergy Unknown unk Verified 06/26/21 16:26 [From Levoxyl] paroxetine [From Paxil] Allergy Unknown unk Verified 06/26/21 16:26 pollen extracts Allergy Unknown unk Verified 06/26/21 16:45 red dye Allergy Unknown Unknown Verified 06/26/21 16:44 Assessment & Plan Assessment & Plan (1) Schizoaffective disorder, bipolar type: Status: Acute Code(s): F25.0 - Schizoaffective disorder, bipolar type Assessment and Plan: pt stable for d/c not aggressive pacing Greater than 50% of the session was spent on counseling and/or coordination of care Reason for contiued inpatient stay Substantial Risk for: rapid decompensation
== END 2021-07-03 12:50 | disposition home or self-care (01) | DRG 885 ==
PROVIDERS: Clinical Nurse Specialist Psychiatric/Mental Health, Adult; Social Worker; Admitting Provider Psychiatry & Neurology Psychiatry; Visit Provider Psychiatry & Neurology Psychiatry
DX: F25.0 Schizoaffective disorder, bipolar type (principal); R45.851 Suicidal ideations; F43.10 Post-traumatic stress disorder, unspecified; Z20.822 Contact with and (suspected) exposure to COVID-19; Z87.820 Personal history of traumatic brain injury; F17.210 Nicotine dependence, cigarettes, uncomplicated; Z71.6 Tobacco abuse counseling; Z79.1 Long term (current) use of non-steroidal anti-inflammatories (NSAID); Z79.899 Other long term (current) drug therapy
CPT/HCPCS: 36415; 80061; 82607; 82746; 83036; 84443; 87635; J1200; J2060

== ENCOUNTER 2024-07-26 22:45 | Emergency (ER) | payer OTHER, SELFPAY ==
[2024-07-26 22:52] VITALS: BP 116/62; BP 99/56; PULSE 76; PULSE 88; RESP 16; TEMP 36.1; O2SAT 96; O2SAT 97; BMI 27.5
[2024-07-26 23:07] VITALS: BP 99/56; PULSE 76; RESP 16; TEMP 36.1; O2SAT 96
--- NOTE | 2024-07-26 23:15 | MHC.EDTECH ---
pt changed over with this tech and security,Amnada present. pt refusing to take sports bra off at this time, SRINIVAS Jefferson aware. pt searched and all other belongings locked in closet on shelf two.
--- NOTE | 2024-07-27 00:14 | ED_ITS ---
HPI - Extremity Problem General Chief complaint: Extremity Injury, Upper Stated complaint: L arm pain after a shot Time Seen by Provider: 07/27/24 00:14 Source: patient Limitations: no limitations History of Present Illness ED Provider: Mary Stout PA-C HPI Narrative: 33-year-old female with a history of schizoaffective disorder, of bipolar type, PTSD and TBI, presents from [facility] with left deltoid pain x1 day. Patient required medical restraint, she received an injection in the left deltoid. Patient complains of swelling and pain. Related Data Home Medications ?Medication ?Instructions ?Recorded ?Confirmed gabapentin 600 mg tablet 600 mg PO BID 06/26/21 06/26/21 Previous Rx's ?Medication ?Instructions ?Recorded benztropine 0.5 mg tablet 0.5 mg PO TID PRN Extrapyramidal 07/02/21 Effects #0 tabs chlorpromazine 100 mg tablet 100 mg PO BID PRN 07/02/21 agitation/anxiety #0 tabs chlorpromazine 25 mg tablet 50 mg (2 x 25 mg) PO BID@0830,1430 07/02/21 #0 tabs dextroamphetamine-amphetamine ER 30 mg PO DAILY 30 days #30 caps 07/02/21 30 mg 24hr capsule,extend release (Adderall XR) propranolol 10 mg tablet 30 mg PO TID #0 tabs 07/02/21 trazodone 100 mg tablet 100 mg PO BEDTIME PRN insomnia #0 07/02/21 tabs trazodone 100 mg tablet 200 mg (2 x 100 mg) PO BEDTIME #0 07/02/21 tabs aripiprazole 30 mg tablet 1 tab PO BEDTIME #30 tabs 07/03/21 benztropine 0.5 mg tablet 0.5 mg PO TID PRN EPS 30 days #90 07/03/21 tabs chlorpromazine 100 mg tablet 100 mg PO BID PRN 07/03/21 AGITATION/ANXIETY 30 days #60 tabs chlorpromazine 25 mg tablet 50 mg (2 x 25 mg) PO BID 30 days 07/03/21 #120 tabs cholecalciferol (vitamin D3) 50 2,000 unit PO DAILY #30 caps 07/03/21 mcg (2,000 unit) capsule (Vitamin D3) dextroamphetamine-amphetamine ER 30 mg PO DAILY 30 days #30 caps 07/03/21 30 mg 24hr capsule,extend release (Adderall XR) fludrocortisone 0.1 mg tablet 1 tab PO DAILY #30 tabs 07/03/21 medroxyprogesterone 150 mg/mL 1 ml IM [id number] #150 mL 07/03/21 intramuscular syringe melatonin 5 mg tablet 2 tab PO BEDTIME #60 tabs 07/03/21 naproxen sodium 220 mg tablet 220 mg PO BID PRN Breakthrough 07/03/21 Pain, Moderate #60 tabs pantoprazole 40 mg tablet,delayed 1 tab PO BID #30 tabs 07/03/21 release propranolol 10 mg tablet 10 mg PO TID #90 tabs 07/03/21 trazodone 100 mg tablet 200 mg (2 x 100 mg) PO BEDTIME #90 07/03/21 tabs Allergies Allergy/AdvReac Type Severity Reaction Status Date / Time fluvoxamine [From Luvox] Allergy Unknown Unknown Verified 07/26/24 23:04 lamotrigine [From Lamictal] Allergy Unknown unk Verified 07/26/24 23:04 latex Allergy Unknown unk Verified 07/26/24 23:04 levothyroxine Allergy Unknown unk Verified 07/26/24 23:04 levothyroxine sodium Allergy Unknown unk Verified 07/26/24 23:04 [From Levoxyl] paroxetine [From Paxil] Allergy Unknown unk Verified 07/26/24 23:04 pollen extracts Allergy Unknown unk Verified 07/26/24 23:04 red dye Allergy Unknown Unknown Verified 07/26/24 23:04 Review of Systems Review of Systems: Yes all other systems are reviewed and are negative Constitutional: Constitutional: Denies fatigue and Denies fever(s) Cardiovascular: Cardiovascular: Denies chest pain and Denies dyspnea Respiratory: Respiratory: Denies dyspnea Musculoskeletal: Musculoskeletal: Reports arthralgias and Reports joint swelling Endocrine: Endocrine: Denies fatigue PMF Past Medical History Attestation statement: The following information was validated with the patient. Medical History (Updated 07/27/24 @ 00:36 by VANNESA Ramirez) TBI (traumatic brain injury) PTSD (post-traumatic stress disorder) Schizoaffective disorder, bipolar type Postural orthostatic tachycardia syndrome Insomnia Colitis Social History Social History Household Members: Other Household Members Other:: halfway with 8-9 residents Housing: House Alcohol intake: current Alcohol intake frequency: 3 or more drinks per day Patient Tobacco Use Status: Current everyday Tobacco user Tobacco use type: Cigarette Cigarette Packs Per Day: 1.5 Cigarettes Per Day: 30.0 Years Smoked: 11 years e-Cigarette/Vaping Use: Never Used Second Hand Smoke Exposure: Yes Substance Use Type: Marijuana Advance Directives: No Advance Directives Information Provided: No Do you have a plan to hurt others: No Plan service: No Sexual orientation: Did not discuss Physical Exam Vital Signs: Vital Signs: Last Vital Signs Temp 97 F 07/26/24 23:07 Pulse 76 07/26/24 23:07 Resp 16 07/26/24 23:07 BP 99/56 L 07/26/24 23:07 Pulse Ox 96 07/26/24 23:07 O2 Del Method Room Air 07/26/24 23:07 BMI result Body Mass Index 27.5 Const: Other: Sleeping, easily woken to verbal stimuli, appears older than stated age Orientation/consciousness: oriented to person Resp: Other: Nonlabored respiration Cardio: Other: Normal peripheral perfusion Skin: Other: Warm dry no rash Neuro: General: oriented to person, no focal motor deficits and CN's II-XI intact bilaterally Extrem: Other: Swelling and faint ecchymosis noted over the left deltoid, Psych: Other: Somewhat sedate, cooperative here in the ER Medical Decision Making Medical Decision Making MDM Narrative: 33-year-old female with a history of schizoaffective disorder, of bipolar type, PTSD and TBI, presents from [facility] with left deltoid pain x1 day. Patient required medical restraint, she received an injection in the left deltoid. Patient complains of swelling and pain. Problem: Psychiatric illness History: Per patient I have considered the following differential diagnoses: Bone contusion, seroma/hematoma no indication for labs or imaging at this time., contusion, abscess Plan: The incident just occurred, abscess formation is least likely. She will likely has a contusion. I viewed site with bedside ultrasound to assess for potential fluid collection that could be indicative of a hematoma versus seroma, no collection there. Discharge Plan Discharge Clinical Impression: Contusion of left deltoid region Patient Disposition: Home, Self-Care Instructions: Contusion in Adults (ED) Additional Instructions: You sustained a contusion, there was no fluid collection within the muscle. See home care instructions. Ice the area several times a day, you can use [id number] ibuprofen and Tylenol as needed for pain. Prescriptions: No Action gabapentin 600 mg tablet 600 mg PO BID propranolol 10 mg Tablet 30 mg PO TID Qty: 0 0RF Protocol: Hold for SBP/HR < HOLD for SBP < : 90 HOLD for HR < : 60 benztropine 0.5 mg Tablet 0.5 mg PO TID PRN (Reason: Extrapyramidal Effects) Qty: 0 0RF chlorpromazine 100 mg Tablet 100 mg PO BID PRN (Reason: agitation/anxiety) Qty: 0 0RF trazodone 100 mg Tablet 200 mg PO BEDTIME Qty: 0 0RF trazodone 100 mg Tablet 100 mg PO BEDTIME PRN (Reason: insomnia) Qty: 0 0RF chlorpromazine 25 mg Tablet 50 mg PO BID@0830,1430 Qty: 0 0RF dextroamphetamine-amphetamine [Adderall XR] 30 mg capsule,extended release 24hr 30 mg PO DAILY 30 Days Qty: 30 0RF pantoprazole 40 mg tablet,delayed release (DR/EC) 1 tab PO BID Qty: 30 0RF naproxen sodium 220 mg tablet 220 mg PO BID PRN (Reason: Breakthrough Pain, Moderate) Qty: 60 0RF fludrocortisone 0.1 mg tablet 1 tab PO DAILY Qty: 30 0RF medroxyprogesterone 150 mg/mL syringe 1 ml IM [id number] Qty: 150 0RF aripiprazole 30 mg tablet 1 tab PO BEDTIME Qty: 30 0RF melatonin 5 mg tablet 2 tab PO BEDTIME Qty: 60 0RF cholecalciferol (vitamin D3) [Vitamin D3] 50 mcg (2,000 unit) capsule 2,000 unit PO DAILY Qty: 30 0RF benztropine 0.5 mg tablet 0.5 mg PO TID PRN (Reason: EPS) 30 Days Qty: 90 0RF chlorpromazine 100 mg tablet 100 mg PO BID PRN (Reason: AGITATION/ANXIETY) 30 Days Qty: 60 0RF chlorpromazine 25 mg tablet 50 mg PO BID 30 Days Qty: 120 0RF dextroamphetamine-amphetamine [Adderall XR] 30 mg capsule,extended release 24hr 30 mg PO DAILY 30 Days Qty: 30 0RF propranolol 10 mg tablet 10 mg PO TID Qty: 90 0RF trazodone 100 mg tablet 200 mg PO BEDTIME Qty: 90 0RF Rx Instructions: MAY TAKE 1 ADDITIONAL TAB AT BEDTIME NEEDED FOR SLEEP IN ADDITION TO 200 MG SCHEDULED Print Language: Lithuanian
[2024-07-27 01:11] VITALS: BP 103/67; PULSE 57; RESP 15; TEMP 36.6; O2SAT 97
[2024-07-27 01:17] VITALS: BP 103/67; PULSE 57; RESP 15; TEMP 36.6; O2SAT 97
--- NOTE | 2024-07-27 08:09 | PHA.MEDREC ---
Pharmacy Consult ? Medication Reconciliation Pharmacy has completed the medication reconciliation. Utilized list from facility.
== END 2024-07-27 01:25 | disposition home or self-care (01) ==
PROVIDERS: Emergency Provider Emergency Medicine
DX: S40.012A Contusion of left shoulder, initial encounter (principal); M25.512 Pain in left shoulder; F17.210 Nicotine dependence, cigarettes, uncomplicated; X58.XXXA Exposure to other specified factors, initial encounter; Y93.9 Activity, unspecified; Y92.89 Other specified places as the place of occurrence of the external cause; Y99.8 Other external cause status; Z79.899 Other long term (current) drug therapy
CPT/HCPCS: 99283; 99284

== ENCOUNTER 2024-08-30 00:23 | Inpatient (IN) | payer OTHER, SELFPAY ==
--- NOTE | ~2024-08-30 | XR_ITS ---
EXAMINATION: XR HAND, LEFT CLINICAL INFORMATION: slammed finger in phone COMPARISON: None available. TECHNIQUE: PA, lateral, and oblique views of the left hand. FINDINGS: The bones and soft tissues are normal. No fracture. Alignment is anatomic. Joint spaces are maintained. No erosions or soft tissue calcifications. XR/XR hand LT min 3V IMPRESSION: Normal left hand. Electronically signed by: Dannie King MD 09/02/2024 05:19 PM JAMES
[2024-08-30 00:47] VITALS: BMI 27.6
[2024-08-30 00:48] VITALS: BP 93/61; PULSE 65; RESP 16; TEMP 36.6; O2SAT 98
--- NOTE | 2024-08-30 06:26 | PC.ADMIT ---
Patient is a 33 year old single Mongolian speaking female admitted as a Section 12 B from a R[facility] in [facility] where she was a Section 35 due to her alcohol abuse disorder. Patient apparently was having SI, SIB and symptoms of psychosis while at the [facility] Program and there was concern for her safety so she went to the [facility] ED for evaluation and referral. Per her ED assessment patient was not being compliant with her medications at the [facility] Program and started experiencing psychiatric symptoms. Patient used the cap of a toothpaste tube to scratch her right forearm an also did head banging with a small spot on her right forehead. She said her behavior was due to CAH to hurt herself and she was having VH of people coming out of the ceiling. Patient has a history of multiple inpatient admissions in the past, including an admission on M5 in 2020. At this time, patient is worried she is now homeless because she lost her [facility] housing due to alcohol use and the RAP program will probably not let her come back. Patient arrived on M3 at 2324 via ambulance and was cooperative with skin check, which was unremarkable other than the scrape on her right forearm, covered with a bandaid and a small abraisian on her right forehead. Patient initially did not want to sign legals or answer questions, due to be tired . However, this web content writer and another RN encouraged her to stay awake long enough to get her assessments done. Patient denied any current SI or HI, and she also said she was not having any CAH or VH. Patient said has these intermittently and she tries to block them out by hurting herself. She said she was not trying to kill herselfand thinks she needs med changes. Patient does have DM involved in her care, she has a prescriber and PCP as well. Na Paris APRN was notified of her admission and initial orders were placed, patient will be on 15 minute safety checks.
[2024-08-30 07:00] VITALS: BMI 27.2
[2024-08-30 07:42] VITALS: BP 94/52; PULSE 59; RESP 14; TEMP 36.8; O2SAT 99
--- NOTE | 2024-08-30 08:02 | P.HPPS_ITS ---
HPI Date of Service: 08/30/24 Chief Complaint: Schizoaffective disorder, alcohol use disorder Sources of Information: patient interviewed, chart reviewed and crisis/core team assessment reviewed HPI Subjective Notes: Madsen Warning and Conditional Voluntary Narrative: Patient is a 33-year-old female with history of schizoaffective disorder, PTSD, ADHD, borderline personality disorder, alcohol use disorder and polysubstance use disorder who presented to ER from a substance abuse treatment program while on a section 35 due to superficially cutting her wrist secondary to increased anxiety. Per crisis report, patient presented to ER from [facility] due to self-harming. Patient was cutting right wrist yesterday with a toothpaste container, head banging and refusing medications. She reported paranoia and auditory hallucinations. Patient was on a section 35 at program in [place] for about 10 days; the plan was for her to either go to a sober home or another program. Patient has a [facility] worker and providers through [facility] and [facility]. denies SI/HI. During admission assessment, patient presents alert and oriented x3. Calm and cooperative. Patient reports she was at a treatment program on a section 35 and began superficially cutting her wrist due to increased anxiety and racing thoughts. Patient reports she has not been taking her mood stabilizer due to feeling like she does not need it . Patient reports sleeping and eating well. She reports history of alcohol use a month ago; drinking a sleeve daily. Patient reports history of using ketamine, acid, mushrooms. She reports last using in July. denies SI/HI/VH/AH. Patient reports crisis report is not accurate and she was not experiencing auditory or visual hallucinations. Past Psychiatric History: History of multiple inpatient psychiatric hospitalizations. History of attending [facility]. History of attending DBT programs. pt reports hx of SA in her 20s. Trials: Ambien x 1 year-effective; [place]- It made me shake, but I felt better. , Depakote-increase in agitation, Olanzapine- it works , Thorazine- make a note that I am NOT allergic to it-it works, what I did was stay out in the sun too long when I took it and got a rash-if I take it an stay out of the sun it is OK and it works very well , Lamictal-rash Medical Evaluation Reviewed: Yes [facility] Medical History (Updated 08/30/24 @ 15:27 by Emani Kessler NP) TBI (traumatic brain injury) PTSD (post-traumatic stress disorder) Schizoaffective disorder, bipolar type Postural orthostatic tachycardia syndrome Insomnia Colitis Family History: Denies Social History: homeless, single. no children. disability. highschool diploma. Substance History: pt reports hx of drinking a sleeve of nips daily. hx of ketamine, acid and mushrooms; states she has not used since July. Trauma History: affirms Diagnostics Vital Signs (24Hr): Vital Signs - 24 hr 08/30/24 00:48 08/30/24 07:42 Temperature 97.8 F 98.3 F Pulse Rate 65 59 Respiratory Rate 16 14 Blood Pressure 93/61 94/52 L Pulse Oximetry 98 99 Oxygen Delivery Method Room Air Room Air BMI result Body Mass Index 27.6 Meds/Allergies Meds Home Medications ?Medication ?Instructions ?Recorded ?Confirmed ?Type acetaminophen 325 mg tablet 650 mg PO Q4H PRN mild to moderate 07/27/24 08/30/24 History pain or fever aluminum-mag hydroxide-simethicone 30 ml PO QID PRN GI upset 07/27/24 08/30/24 History 200 mg-200 mg-20 mg/5 mL oral susp clonidine HCl 0.1 mg tablet 0.1 mg PO Q6H PRN Anxiety 07/27/24 08/30/24 History gabapentin 300 mg capsule 300 mg PO TID 07/27/24 08/30/24 History ivabradine 5 mg tablet 5 mg PO BID 07/27/24 08/30/24 History melatonin 3 mg capsule 3 mg PO BEDTIME PRN Insomnia 07/27/24 08/30/24 History naltrexone 50 mg tablet 50 mg PO DAILY 07/27/24 08/30/24 History chlorpromazine 100 mg tablet 100 mg PO TID PRN Agitation 08/30/24 08/30/24 History clonidine HCl 0.2 mg tablet 0.2 mg PO BID 08/30/24 08/30/24 History disulfiram 250 mg tablet 250 mg PO DAILY 08/30/24 08/30/24 History ergocalciferol (vitamin D2) 25,000 50,000 unit PO QWEEK 08/30/24 08/30/24 History unit capsule hydroxyzine pamoate 50 mg capsule 50 mg PO Q4H PRN Agitation 08/30/24 08/30/24 History lactulose 20 gram/30 mL oral 30 g PO BID 08/30/24 08/30/24 History solution magnesium hydroxide 800 mg/5 mL 2,400 mg PO BID PRN Constipation 08/30/24 08/30/24 History oral suspension multivitamin 1 tab PO DAILY 08/30/24 08/30/24 History nicotine 21 mg/24 hr daily 1 patch transdermal DAILY 08/30/24 08/30/24 History transdermal patch perphenazine 4 mg tablet 4 mg PO BID PRN Psychosis 08/30/24 08/30/24 History sennosides 17.2 mg tablet 17.2 mg PO BID 08/30/24 08/30/24 History sodium phosphates 19 gram-7 118 ml RI DAILY PRN Constipation 08/30/24 08/30/24 History gram/118 mL enema (Fleet Enema) trazodone 100 mg tablet 100 mg PO BEDTIME PRN Insomnia 08/30/24 08/30/24 History Allergies Allergies Allergy/AdvReac Type Severity Reaction Status Date / Time fluvoxamine [From Luvox] Allergy Unknown Unknown Verified 07/26/24 23:04 lamotrigine [From Lamictal] Allergy Unknown unk Verified 07/26/24 23:04 latex Allergy Unknown unk Verified 07/26/24 23:04 levothyroxine Allergy Unknown unk Verified 07/26/24 23:04 levothyroxine sodium Allergy Unknown unk Verified 07/26/24 23:04 [From Levoxyl] paroxetine [From Paxil] Allergy Unknown unk Verified 07/26/24 23:04 pollen extracts Allergy Unknown unk Verified 07/26/24 23:04 red dye Allergy Unknown Unknown Verified 07/26/24 23:04 Mental Status Exam Mental Status Exam Narrative: Pt is alert and oriented; behavior is cooperative; dressed in casual attire; mood is described as anxious ; eye contact appropriate; Speech is normal rate, volume and not pressured; thought process is organized and goal directed; Thought content is on tx; denies SI/HI/VH/AH. Assessment & Plan Assessment & Plan (1) Schizoaffective disorder, bipolar type: Status: Acute Code(s): F25.0 - Schizoaffective disorder, bipolar type (2) Borderline personality disorder: Status: Acute Code(s): F60.3 - Borderline personality disorder (3) PTSD (post-traumatic stress disorder): Status: Chronic Code(s): F43.10 - Post-traumatic stress disorder, unspecified (4) Alcohol use disorder: Status: Acute Code(s): F10.90 - Alcohol use, unspecified, uncomplicated (5) Polysubstance abuse: Status: Acute Code(s): F19.10 - Other psychoactive substance abuse, uncomplicated Plan Patient is a 33-year-old female with history of schizoaffective disorder, PTSD, ADHD, borderline personality disorder, alcohol use disorder and polysubstance use disorder who presented to ER from a substance abuse treatment program while on a section 35 due to superficially cutting her wrist secondary to increased anxiety. Plan: CV 15 minute safety checks Continue previous medications Encourage groups Obtain collateral Discharge planning Patient educated on: diagnosis and medication risk/benefits Reason for continued inpatient stay Substantial Risk for: med/psych decompensation Statement Statement: I have reviewed the history and physical and performed a pertinent examination on my patient. No changes have occurred unless specified. If the History and Physical was not performed prior to admission, the Hospitalist's service will be consulted for completing the admission physical. Time Spent With Patient Time: Total time managing care of this patient today _60___ minutes.
--- NOTE | 2024-08-30 08:02 | HO.PSYCHPN ---
Subjective Subjective Reason For Visit: Schizoaffective disorder, alcohol use disorder Diagnostics Vital Signs (24Hr): Vital Signs - 24 hr 08/30/24 00:48 08/30/24 07:42 Temperature 97.8 F 98.3 F Pulse Rate 65 59 Respiratory Rate 16 14 Blood Pressure 93/61 94/52 L Pulse Oximetry 98 99 Oxygen Delivery Method Room Air Room Air BMI result Body Mass Index 27.6 Medications Medications Current Medications Acetaminophen (Acetaminophen 325 Mg Tablet) 650 mg PO Q6H PRN PRN Reason: Headache/Pain Mild Scale (1-3) Al Hydroxide/Mg Hydroxide (Magnesium Hydrox/Alum Hydrox 30 Ml Oral.Susp) 30 ml PO Q6H PRN PRN Reason: Heartburn/Nausea Hydroxyzine HCl (Hydroxyzine Hcl 25 Mg Tablet) 25 mg PO Q6H PRN PRN Reason: Anxiety Magnesium Hydroxide (Milk Of Magnesia 30 Ml Oral.Susp) 30 ml PO DAILY PRN PRN Reason: Constipation Nicotine (Nicotine 14 Mg Patch.Td24) 14 mg TRANSDERMA DAILY PRN PRN Reason: nicotine craving Nicotine Polacrilex (Nicotine Polacrilex 2 Mg Gum) 4 mg BUCCAL Q2H PRN PRN Reason: Nicotine Cravings Trazodone HCl (Trazodone Hcl 50 Mg Tablet) 50 mg PO BEDTIME MRX1 PRN PRN Reason: Insomnia Allergies Allergies Allergy/AdvReac Type Severity Reaction Status Date / Time fluvoxamine [From Luvox] Allergy Unknown Unknown Verified 07/26/24 23:04 lamotrigine [From Lamictal] Allergy Unknown unk Verified 07/26/24 23:04 latex Allergy Unknown unk Verified 07/26/24 23:04 levothyroxine Allergy Unknown unk Verified 07/26/24 23:04 levothyroxine sodium Allergy Unknown unk Verified 07/26/24 23:04 [From Levoxyl] paroxetine [From Paxil] Allergy Unknown unk Verified 07/26/24 23:04 pollen extracts Allergy Unknown unk Verified 07/26/24 23:04 red dye Allergy Unknown Unknown Verified 07/26/24 23:04 Assessment & Plan Time Spent With Patient Time: Total time managing care of this patient today ____ minutes.
--- NOTE | 2024-08-30 11:24 | HO.PM.IMCN ---
History of Present Illness Data of Consult Service Date: 08/30/24 Primary Care Provider: Unknown Physician HPI Reason for consult: Admission H&P Pt is a 33-year-old female with a PMH significant for?POTS, chronic constipation, alcohol use disorder, PTSD, and schizoaffective disorder who is admitted to [facility] psychiatry unit for acute psychosis with SI. Patient reports it has recently been hearing auditory and visual hallucinations, and attempting self-harm by banging her head and cutting her wrists. Medical consult for admission H&P. Patient reports has a history of POTS diagnosed 3 years ago. Was prescribed ivabrandine and midodrine but recently stopped taking her midodrine a few weeks ago on her own and she thought she was taking too many pills. Reports has never passed out had any falls from POTS. Also reports chronic constipation with history colitis and impaction. Last bowel movement 5 days prior. Recently started lactulose b.i.d., as well as senna and Colace. Currently patient has no acute medical complaints. Denies lightheadedness or dizziness. No abdominal pain. Denies nausea, vomiting, fever, chills. No shortness a breath or difficulty breathing. Denies chest pain/pressure, palpitations. Reports last drink over 1 month ago. Review of Systems Review of Systems: Patient has no acute medical complaints at this time [facility] Medical History (Updated 08/30/24 @ 14:37 by VANNESA Farmer) TBI (traumatic brain injury) PTSD (post-traumatic stress disorder) Schizoaffective disorder, bipolar type Postural orthostatic tachycardia syndrome Insomnia Colitis Social History Household Members: Other Household Members Other:: senior living with 8-9 residents Housing: Homeless Do you presently have visiting nurse or other home services: No Alcohol intake: current Alcohol intake frequency: 3 or more drinks per day Patient Tobacco Use Status: Current everyday Tobacco user Tobacco use type: Cigarette Cigarette Packs Per Day: 1.5 Cigarettes Per Day: 30.0 Years Smoked: 11 Smoked in Last 30 Days: Yes e-Cigarette/Vaping Use: Never Used Patient Interested in Nicotine Replacement: Yes Patient Given Instructions on How to Stop Smoking: Yes Date Education Initiated: 08/30/24 Second Hand Smoke Exposure: Yes Use of substances other than those prescribed or required for medical reasons: Yes Substance Use Type: Marijuana Substance Use Frequency: Chronic Longstanding Last Used Substance: Days (ago) Currently Displaying Signs/Symptoms of Drug Intoxication Withdrawal: No Have you been hit, kicked, punched, or otherwise hurt by someone within the past year? If so, by whom?: No Do you feel safe in your current relationship?: No Current Relationship Is there a partner from a previous relationship who is making you feel unsafe now?: No Are you made to feel afraid or neglected: No Spiritual Healthcare Practices: none Jewish Healthcare Practices: none Cultural Healthcare Practices: none Advance Directives: No Advance Directives Information Provided: No Advance Directives on File: No Do you have thoughts of harming others: None Do you have a plan to hurt others: No Plan Recently lost weight without trying: No How much weight loss: Not applicable Eating poorly because of decreased appetite: No Nutrition screen score: 0 Nutrition Risks: No Nutritional Risk Patient : No : No Poor oral hygiene: No service: No Sexual orientation: Did not discuss Meds Allergies Allergy/AdvReac Type Severity Reaction Status Date / Time fluvoxamine [From Luvox] Allergy Unknown Unknown Verified 07/26/24 23:04 lamotrigine [From Lamictal] Allergy Unknown unk Verified 07/26/24 23:04 latex Allergy Unknown unk Verified 07/26/24 23:04 levothyroxine Allergy Unknown unk Verified 07/26/24 23:04 levothyroxine sodium Allergy Unknown unk Verified 07/26/24 23:04 [From Levoxyl] paroxetine [From Paxil] Allergy Unknown unk Verified 07/26/24 23:04 pollen extracts Allergy Unknown unk Verified 07/26/24 23:04 red dye Allergy Unknown Unknown Verified 07/26/24 23:04 Active Medications: Current Medications Acetaminophen (Acetaminophen 325 Mg Tablet) 650 mg PO Q6H PRN PRN Reason: Headache/Pain Mild Scale (1-3) Al Hydroxide/Mg Hydroxide (Magnesium Hydrox/Alum Hydrox 30 Ml Oral.Susp) 30 ml PO Q6H PRN PRN Reason: Heartburn/Nausea Hydroxyzine HCl (Hydroxyzine Hcl 25 Mg Tablet) 25 mg PO Q6H PRN PRN Reason: Anxiety Magnesium Hydroxide (Milk Of Magnesia 30 Ml Oral.Susp) 30 ml PO DAILY PRN PRN Reason: Constipation Nicotine (Nicotine 14 Mg Patch.Td24) 14 mg TRANSDERMA DAILY PRN PRN Reason: nicotine craving Nicotine Polacrilex (Nicotine Polacrilex 2 Mg Gum) 4 mg BUCCAL Q2H PRN PRN Reason: Nicotine Cravings Trazodone HCl (Trazodone Hcl 50 Mg Tablet) 50 mg PO BEDTIME MRX1 PRN PRN Reason: Insomnia Home Medications ?Medication ?Instructions ?Recorded ?Confirmed ?Last Taken ?Type acetaminophen 325 mg tablet 650 mg PO Q4H PRN mild to moderate 07/27/24 08/30/24 Unknown History pain or fever aluminum-mag hydroxide-simethicone 30 ml PO QID PRN GI upset 07/27/24 08/30/24 Unknown History 200 mg-200 mg-20 mg/5 mL oral susp clonidine HCl 0.1 mg tablet 0.1 mg PO Q6H PRN Anxiety 07/27/24 08/30/24 Unknown History gabapentin 300 mg capsule 300 mg PO TID 07/27/24 08/30/24 08/29/24 History ivabradine 5 mg tablet 5 mg PO BID 07/27/24 08/30/24 08/29/24 History melatonin 3 mg capsule 3 mg PO BEDTIME PRN Insomnia 07/27/24 08/30/24 08/28/24 History naltrexone 50 mg tablet 50 mg PO DAILY 07/27/24 08/30/24 08/29/24 History chlorpromazine 100 mg tablet 100 mg PO TID PRN Agitation 08/30/24 08/30/24 08/29/24 History clonidine HCl 0.2 mg tablet 0.2 mg PO BID 08/30/24 08/30/24 08/29/24 History disulfiram 250 mg tablet 250 mg PO DAILY 08/30/24 08/30/24 Unknown History ergocalciferol (vitamin D2) 25,000 50,000 unit PO QWEEK 08/30/24 08/30/24 Unknown History unit capsule hydroxyzine pamoate 50 mg capsule 50 mg PO Q4H PRN Agitation 08/30/24 08/30/24 08/29/24 History lactulose 20 gram/30 mL oral 30 g PO BID 08/30/24 08/30/24 08/29/24 History solution magnesium hydroxide 800 mg/5 mL 2,400 mg PO BID PRN Constipation 08/30/24 08/30/24 08/29/24 History oral suspension multivitamin 1 tab PO DAILY 08/30/24 08/30/24 08/29/24 History nicotine 21 mg/24 hr daily 1 patch transdermal DAILY 08/30/24 08/30/24 08/29/24 History transdermal patch perphenazine 4 mg tablet 4 mg PO BID PRN Psychosis 08/30/24 08/30/24 08/28/24 History sennosides 17.2 mg tablet 17.2 mg PO BID 08/30/24 08/30/24 08/29/24 History sodium phosphates 19 gram-7 118 ml IN DAILY PRN Constipation 08/30/24 08/30/24 08/29/24 History gram/118 mL enema (Fleet Enema) trazodone 100 mg tablet 100 mg PO BEDTIME PRN Insomnia 08/30/24 08/30/24 08/28/24 History Physical Exam Vital Signs and Narrative: Vital Signs: Last Vital Signs Temp 98.3 F 08/30/24 07:42 Pulse 59 08/30/24 07:42 Resp 14 08/30/24 07:42 BP 94/52 L 08/30/24 07:42 Pulse Ox 99 08/30/24 07:42 O2 Del Method Room Air 08/30/24 07:42 BMI result Body Mass Index 27.6 General: AOx3, no acute distress Resp: CTA bilaterally CVS: S1, S2, RRR GI: +BS, NT, no distention Skin: Warm, dry. Small superficial healing abrasions to forehead. Neuro: Cranial nerves II-XII grossly intact bilaterally. Motor grossly intact bilaterally Extremities: No edema Assessment and Plan (1) Medical clearance for psychiatric admission: Status: Acute Plan Pt is a 33-year-old female with a PMH significant for?POTS, chronic constipation, alcohol use disorder, PTSD, and schizoaffective disorder who is admitted to [facility] psychiatry unit for acute psychosis with SI. Patient reports it has recently been hearing auditory and visual hallucinations, and attempting self-harm by banging her head and cutting her wrists. Medical consult for admission H&P. Mood disorder Plan as per Psychiatry POTS Will restart midodrine 5 mg b.i.d. Ivabrandine not on formulary, will switch to propanolol 10 mg t.i.d. Monitor vitals Chronic constipation Continue lactulose, senna, Colace Alcohol use disorder Plan as per Psychiatry/Addiction medicine Peripheral neuropathy Continue gabapentin Thank you for allowing us to participate in the care of this patient. Signing off at this time. Please re-consult if any acute complaints or issues arise.
[2024-08-30 12:28] VITALS: BP 113/71; PULSE 74; RESP 16; TEMP 36.9; O2SAT 98
[2024-08-30] MEDS: Multivitamin TABLET 1 TAB PO (12:31)
[2024-08-30] MEDS: cloNIDine HCL 0.2 MG TABLET PO ×2 (12:31→20:18)
[2024-08-30] MEDS: Lactulose 20 GM/30 ML SOLUTION 30 GM PO ×2 (12:32→20:20)
[2024-08-30] MEDS: Naltrexone HCl 50 MG TABLET PO (12:32)
[2024-08-30] MEDS: Gabapentin 300 MG CAPSULE PO ×2 (14:46→20:17)
[2024-08-30 15:21] VITALS: BP 108/70; PULSE 62; O2SAT 100
[2024-08-30] MEDS: cloNIDine HCL 0.1 MG TABLET PO (15:42)
[2024-08-30 19:55] VITALS: BP 107/72; PULSE 60; RESP 16; TEMP 36.4; O2SAT 100
[2024-08-30] MEDS: Sennosides 8.6 MG TABLET 17.2 MG PO (20:17)
[2024-08-30] MEDS: Propranolol HCL 10 MG TABLET PO (20:18)
[2024-08-31] MEDS: hydrOXYzine HCL 25 MG TABLET PO (00:45)
[2024-08-31] MEDS: Melatonin 3 MG TABLET PO (00:46)
[2024-08-31 07:10] VITALS: BP 91/52; PULSE 54; RESP 14; TEMP 36.4; O2SAT 100
[2024-08-31] MEDS: Lactulose 20 GM/30 ML SOLUTION 30 GM PO ×2 (08:16→20:14)
[2024-08-31] MEDS: Naltrexone HCl 50 MG TABLET PO (08:17)
[2024-08-31] MEDS: Sennosides 8.6 MG TABLET 17.2 MG PO ×2 (08:17→20:22)
[2024-08-31] MEDS: Gabapentin 300 MG CAPSULE PO ×3 (08:17→20:14)
[2024-08-31] MEDS: Multivitamin TABLET 1 TAB PO (08:17)
[2024-08-31] MEDS: Disulfiram 250 MG TABLET PO (08:17)
[2024-08-31 08:52] VITALS: BP 102/70
[2024-08-31] MEDS: cloNIDine HCL 0.2 MG TABLET PO (08:52)
[2024-08-31] MEDS: diphenhydrAMINE HCL 50 MG/ML VIAL IM ×2 (11:09→19:20)
[2024-08-31] MEDS: Haloperidol Lactate 5 MG/ML VIAL IM ×2 (11:09→19:20)
[2024-08-31] MEDS: LORazepam 2 MG/ML VIAL 1 MG IM ×2 (11:09→19:20)
--- NOTE | 2024-08-31 11:10 | HO.PSYEVENT ---
Documented by User: Emani Kessler NP 08/31/24 11:15 Event Note Date of Service: 08/31/24 Psych Restraint Event Note: At 1055 pt began demanding to be discharged. When notified she would not be discharged today; pt became agitated, yelling, throwing items. Nursing requested restraint d/t erratic behavior. Haldol 5mg IM, Ativan 1mg IM and Benadryl 50mg IM given. Pt seen at 11:10. Pt placed in restraint chair; nursing to monitor. Time Spent With Patient Time: Total time managing care of this patient today _10___ minutes. Documented by User: Obi Whiteside MD 08/31/24 23:12 Event Note Date of Service: 08/31/24
--- NOTE | 2024-08-31 11:17 | PM.EVENT ---
Event Note Date of Service: 08/31/24 Event Note: Addiction consult placed for patient with history of JENNIE Per chart review patient presented from [facility] (substance use treatment )d/t SIB Patient agitated and requiring chemical and mechanical restraint Not appropriate to see at this time --will confer with provider on Tuesday regarding consult at that time Time Spent With Patient Time: Total time managing care of this patient today ____ minutes.
--- NOTE | 2024-08-31 12:37 | PC.NURSE ---
Addendum entered by Elina Veliz RN 08/31/24 13:10: At 1053 Amanda approached the nurses station and asked Emani Kessler NP to discharge her. She was told she would not be discharged today. She then asked this RN for her shoes and to unlock the door. I attempted to explain the discharge process further and pt became quickly agitated. She began yelling, swearing and then entered the day room area throwing trays, books, magazines and attempting to push furniture in close proximity to other patients, placing patients at risk of injury. At 1055 she was placed in physical hold by 2 MHCs and myself. Security was called and pt was placed in restraint chair at 1100. Medication restraint was ordered and was administered at 1109 per provider order. Pt continued shouting and thrashing, attempting to get out of restraints. At 1123 she was calm, agreed to refrain from unsafe behaviors and was released from restraint. Original Note: Amanda approached the nurses station and asked Emani Kessler NP to discharge her. She was told she would not be discharged today. She then asked this RN for her shoes and to unlock the door. I attempted to explain the discharge process further and pt became quickly agitated. She began yelling, swearing and then entered the day room area throwing trays, books, magazines and attempting to push furniture in close proximity to other patients, placing patients at risk of injury.
--- NOTE | 2024-08-31 13:40 | HO.PSYCHPN ---
Subjective Subjective Date of Service: 08/31/24 Reason For Visit: Schizoaffective disorder, alcohol use disorder Subjective Notes: 3 Day Interim History: Signed 3 day. Pt reports feeling her anxiety has improved since being here. slept 4 hours per nursing. Pt began demanding to be discharged; pt stated, I don't need to be here. This is fucking stupid. I need to leave today. You need to discharge me now! When notified she would not be discharged today, pt became agitated and began throwing items, knocking things over. Restraint was ordered, please see note. Placed on fresh air restriction. Medication Compliance: Intermittent Attending Groups: Intermittent Review of Systems Constitutional: Reports as per HPI Eyes: Reports as per HPI Reports as per HPI Cardiovascular: Reports as per HPI Respiratory: Reports as per HPI Gastrointestinal: Reports as per HPI Genitourinary: Reports as per HPI Musculoskeletal: Reports as per HPI Skin/Breast: Reports as per HPI Reports as per HPI Psychiatric: Reports as per HPI Endocrine: Reports as per HPI Hematologic/Lymphatic: Reports as per HPI Allergic/Immunologic: Reports as per HPI Mental Status Exam Mental Status Exam Narrative: Pt is alert and oriented; behavior is agitated, demanding, yelling, throwing items; dressed in casual attire; eye contact appropriate; Speech is normal rate, loud volume; focused on discharge. Diagnostics Vital Signs (24Hr): Vital Signs - 24 hr 08/30/24 15:21 08/30/24 19:55 08/31/24 07:10 Temperature 97.6 F 97.5 F Pulse Rate 62 60 54 Respiratory Rate 16 14 Blood Pressure 108/70 107/72 91/52 L Pulse Oximetry 100 100 100 Oxygen Delivery Method Room Air Room Air Room Air 08/31/24 08:52 Temperature Pulse Rate Respiratory Rate Blood Pressure 102/70 Pulse Oximetry Oxygen Delivery Method BMI result Body Mass Index 27.2 Medications Medications Current Medications Acetaminophen (Acetaminophen 325 Mg Tablet) 650 mg PO Q6H PRN PRN Reason: Headache/Pain Mild Scale (1-3) Al Hydroxide/Mg Hydroxide (Magnesium Hydrox/Alum Hydrox 30 Ml Oral.Susp) 30 ml PO Q6H PRN PRN Reason: Heartburn/Nausea Chlorpromazine HCl (Chlorpromazine Hcl 100 Mg Tablet) 100 mg PO TID PRN PRN Reason: Agitation Clonidine HCl (Clonidine Hcl 0.1 Mg Tablet) 0.1 mg PO Q6H PRN; Protocol PRN Reason: Anxiety Last Admin: 08/30/24 15:42 Dose: 0.1 mg Clonidine HCl (Clonidine Hcl 0.2 Mg Tablet) 0.2 mg PO BID [facility]; Protocol Last Admin: 08/31/24 08:52 Dose: 0.2 mg Disulfiram (Disulfiram 250 Mg Tablet) 250 mg PO DAILY [facility] Last Admin: 08/31/24 08:17 Dose: 250 mg Gabapentin (Gabapentin 300 Mg Capsule) 300 mg PO TID [facility] Last Admin: 08/31/24 08:17 Dose: 300 mg Hydroxyzine HCl (Hydroxyzine Hcl 25 Mg Tablet) 25 mg PO Q6H PRN PRN Reason: Anxiety Last Admin: 08/31/24 00:45 Dose: 25 mg Lactulose (Lactulose 20 Gm/30 Ml Solution) 30 gm PO BID [facility] Last Admin: 08/31/24 08:16 Dose: 30 gm Magnesium Hydroxide (Milk Of Magnesia 30 Ml Oral.Susp) 30 ml PO DAILY PRN PRN Reason: Constipation Melatonin (Melatonin 3 Mg Tablet) 3 mg PO BEDTIME PRN PRN Reason: Insomnia Last Admin: 08/31/24 00:46 Dose: 3 mg Midodrine (Midodrine Hcl 2.5 Mg Tablet) 2.5 mg PO BID [facility] Last Admin: 08/31/24 09:43 Dose: Not Given Multivitamins/Vitamin C (Multivitamin Tablet) 1 tab PO DAILY [facility] Last Admin: 08/31/24 08:17 Dose: 1 tab Naltrexone HCl (Naltrexone Hcl 50 Mg Tablet) 50 mg PO DAILY [facility] Last Admin: 08/31/24 08:17 Dose: 50 mg Nicotine (Nicotine 14 Mg Patch.Td24) 14 mg TRANSDERMA DAILY PRN PRN Reason: nicotine craving Nicotine Polacrilex (Nicotine Polacrilex 2 Mg Gum) 4 mg BUCCAL Q2H PRN PRN Reason: Nicotine Cravings Perphenazine (Perphenazine 4 Mg Tablet) 4 mg PO BID [facility] Last Admin: 08/31/24 09:43 Dose: Not Given Propranolol HCl (Propranolol Hcl 10 Mg Tablet) 10 mg PO TID [facility] Last Admin: 08/31/24 09:43 Dose: Not Given Senna (Sennosides 8.6 Mg Tablet) 17.2 mg PO BID [facility] Last Admin: 08/31/24 08:17 Dose: 17.2 mg Trazodone HCl (Trazodone Hcl 50 Mg Tablet) 50 mg PO BEDTIME MRX1 PRN PRN Reason: Insomnia Allergies Allergies Allergy/AdvReac Type Severity Reaction Status Date / Time fluvoxamine [From Luvox] Allergy Unknown Unknown Verified 07/26/24 23:04 lamotrigine [From Lamictal] Allergy Unknown unk Verified 07/26/24 23:04 latex Allergy Unknown unk Verified 07/26/24 23:04 levothyroxine Allergy Unknown unk Verified 07/26/24 23:04 levothyroxine sodium Allergy Unknown unk Verified 07/26/24 23:04 [From Levoxyl] paroxetine [From Paxil] Allergy Unknown unk Verified 07/26/24 23:04 pollen extracts Allergy Unknown unk Verified 07/26/24 23:04 red dye Allergy Unknown Unknown Verified 07/26/24 23:04 Assessment & Plan Assessment & Plan (1) Schizoaffective disorder, bipolar type: Status: Acute Code(s): F25.0 - Schizoaffective disorder, bipolar type (2) Borderline personality disorder: Status: Acute Code(s): F60.3 - Borderline personality disorder (3) PTSD (post-traumatic stress disorder): Status: Chronic Code(s): F43.10 - Post-traumatic stress disorder, unspecified (4) Alcohol use disorder: Status: Acute Code(s): F10.90 - Alcohol use, unspecified, uncomplicated (5) Polysubstance abuse: Status: Acute Code(s): F19.10 - Other psychoactive substance abuse, uncomplicated Plan Patient is a 33-year-old female with history of schizoaffective disorder, PTSD, ADHD, borderline personality disorder, alcohol use disorder and polysubstance use disorder who presented to ER from a substance abuse treatment program while on a section 35 due to superficially cutting her wrist secondary to increased anxiety. Plan: CV 15 minute safety checks Continue previous medications Encourage groups Obtain collateral Discharge planning 08/31: Signed 3 day. Pt reports feeling her anxiety has improved since being here. slept 4 hours per nursing. Pt began demanding to be discharged; pt stated, I don't need to be here. This is fucking stupid. I need to leave today. You need to discharge me now! When notified she would not be discharged today, pt became agitated and began throwing items, knocking things over. Restraint was ordered, please see note. Placed on fresh air restriction. Patient educated on: diagnosis and medication risk/benefits Reason for continued inpatient stay Substantial Risk for: med/psych decompensation Time Spent With Patient Time: Total time managing care of this patient today __30__ minutes.
[2024-08-31 14:18] VITALS: BP 90/60; PULSE 60
[2024-08-31] MEDS: Nicotine 14 MG PATCH.TD24 TRANSDERMA (18:34)
--- NOTE | 2024-08-31 19:14 | HO.PSYEVENT ---
Documented by User: Emani Kessler NP 08/31/24 19:16 Event Note Date of Service: 08/31/24 Psych Restraint Event Note: At 1710 RN notified T/W that pt attempted to elope unit. kicking and punching door and staff. Haldol 5mg IM, Ativan 1mg IM and Benadryl 50mg IM ordered. Nursing to monitor. Time Spent With Patient Time: Total time managing care of this patient today _10___ minutes. Documented by User: Obi Whiteside MD 08/31/24 21:01 Event Note Date of Service: 08/31/24
[2024-08-31 20:00] VITALS: BP 97/55; PULSE 68; RESP 16; TEMP 36.8; O2SAT 97
--- NOTE | 2024-08-31 20:13 | PM.EVENT ---
Event Note Date of Service: 08/31/24 Event Note: The patient was evaluated and examined following the use of chemical and physical restraints ordered by the unit provider. At the time of assessment, the patient was secured in a restraint chair, awake, and communicative but appeared somewhat drowsy. No signs of acute physical injury were observed. Lung sounds were clear, the cardiovascular system showed regular rate and rhythm, and circulation was intact in both upper and lower extremities bilaterally. The patient exhibited spontaneous movements and appeared to be in no acute distress. The evaluation was conducted within one hour of restraint implementation. Time Spent With Patient Time: Total time managing care of this patient today ____ minutes.
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
[2024-08-31 20:20] VITALS: BP 97/55
[2024-08-31 20:21] VITALS: BP 97/55
[2024-08-31] MEDS: chlorproMAZINE HCl 100 MG TABLET PO (20:22)
[2024-09-01] VITALS (9 sets, daily range): BP systolic 99–111; BP diastolic 67–70; PULSE 71–83; RESP 16–18; TEMP 36.4–36.6; O2SAT 98–99
[2024-09-01] MEDS: hydrOXYzine HCL 25 MG TABLET PO ×2 (00:53→11:58)
[2024-09-01] MEDS: Melatonin 3 MG TABLET PO (00:53)
--- NOTE | 2024-09-01 02:39 | PC.NURSE ---
Vidhya Márquez is primary RN. T/W assessed patient on rising at 0045.patient seeking fluids which were given. when questioned about restraint process patient reported ''I wanted to leave'' when asked if she was experiencing any discomfort from restraint process stated ''my arms hurt from the shots'' did allow brief assessment, no s/s of inflammation or infection. ice pack offered and declined. requested additional PRN medications and returned to bed. Observer at side. patient is aware of 1:1 status and that she must be viewed at all times until re assessed in AM.
--- NOTE | 2024-09-01 06:07 | PC.NURSE ---
comment form-on rising presented as pleasant, no restlessness noted. reviewed !st restraint process. reported ''trust issues'' ''I wanted to leave'' reports she would like to go to a peer run respite in [facility].
[2024-09-01] MEDS: cloNIDine HCL 0.2 MG TABLET PO ×2 (08:21→20:33)
[2024-09-01] MEDS: Disulfiram 250 MG TABLET PO (08:21)
[2024-09-01] MEDS: Lactulose 20 GM/30 ML SOLUTION 30 GM PO ×2 (08:22→20:33)
[2024-09-01] MEDS: Gabapentin 300 MG CAPSULE PO ×3 (08:22→20:33)
[2024-09-01] MEDS: Multivitamin TABLET 1 TAB PO (08:23)
[2024-09-01] MEDS: Naltrexone HCl 50 MG TABLET PO (08:23)
[2024-09-01] MEDS: Propranolol HCL 10 MG TABLET PO ×2 (08:24→20:34)
[2024-09-01] MEDS: Sennosides 8.6 MG TABLET 17.2 MG PO ×2 (08:25→20:34)
[2024-09-01] MEDS: Nicotine 14 MG PATCH.TD24 TRANSDERMA (08:34)
--- NOTE | 2024-09-01 09:00 | HO.PSYCHPN ---
Subjective Subjective Date of Service: 09/01/24 Reason For Visit: Schizoaffective disorder, alcohol use disorder Subjective Notes: 3 Day Interim History: Active on unit, social with peers. continues on 1:1. Pt reports she feels that her mind is racing; refusing trilafon. Pt requesting to start Abilify, reports being beneficial in the past. Does not want to take trilafon; she believes it does not help and has been refusing. Start: Abilify 10mg PO daily. DC trilafon. Requesting to be taken off 1:1; was notified she would be taken off once she is able to stay in behavioral control for 24 hours. denies SI/HI/VH/AH. Medication Compliance: Intermittent Side effects from medications: No Attending Groups: Yes Review of Systems Constitutional: Reports as per HPI Eyes: Reports as per HPI Reports as per HPI Cardiovascular: Reports as per HPI Respiratory: Reports as per HPI Gastrointestinal: Reports as per HPI Musculoskeletal: Reports as per HPI Skin/Breast: Reports as per HPI Reports as per HPI Psychiatric: Reports as per HPI Endocrine: Reports as per HPI Hematologic/Lymphatic: Reports as per HPI Allergic/Immunologic: Reports as per HPI Mental Status Exam Mental Status Exam Narrative: Pt is alert and oriented; behavior is cooperative; dressed in casual attire; eye contact appropriate; Speech is normal rate, volume; reports racing thoughts. mood described as okay ; focused on discharge. Denies SI/HI/VH/AH. Diagnostics Vital Signs (24Hr): Vital Signs - 24 hr 08/31/24 14:18 08/31/24 20:00 08/31/24 20:20 Temperature 98.2 F Pulse Rate 60 68 Respiratory Rate 16 Blood Pressure 90/60 97/55 L 97/55 L Pulse Oximetry 97 Oxygen Delivery Method Room Air 08/31/24 20:21 08/31/24 20:21 09/01/24 07:10 Temperature 97.6 F Pulse Rate 73 Respiratory Rate 16 Blood Pressure 97/55 L 97/55 L 111/70 Pulse Oximetry 99 Oxygen Delivery Method Room Air 09/01/24 08:21 09/01/24 08:22 09/01/24 08:24 Temperature Pulse Rate 73 Respiratory Rate Blood Pressure 111/70 111/70 111/70 Pulse Oximetry Oxygen Delivery Method BMI result Body Mass Index 27.2 Medications Medications Current Medications Acetaminophen (Acetaminophen 325 Mg Tablet) 650 mg PO Q6H PRN PRN Reason: Headache/Pain Mild Scale (1-3) Al Hydroxide/Mg Hydroxide (Magnesium Hydrox/Alum Hydrox 30 Ml Oral.Susp) 30 ml PO Q6H PRN PRN Reason: Heartburn/Nausea Chlorpromazine HCl (Chlorpromazine Hcl 100 Mg Tablet) 100 mg PO TID PRN PRN Reason: Agitation Last Admin: 08/31/24 20:22 Dose: 100 mg Clonidine HCl (Clonidine Hcl 0.1 Mg Tablet) 0.1 mg PO Q6H PRN; Protocol PRN Reason: Anxiety Last Admin: 08/30/24 15:42 Dose: 0.1 mg Clonidine HCl (Clonidine Hcl 0.2 Mg Tablet) 0.2 mg PO BID [facility]; Protocol Last Admin: 09/01/24 08:21 Dose: 0.2 mg Disulfiram (Disulfiram 250 Mg Tablet) 250 mg PO DAILY [facility] Last Admin: 09/01/24 08:21 Dose: 250 mg Gabapentin (Gabapentin 300 Mg Capsule) 300 mg PO TID [facility] Last Admin: 09/01/24 08:22 Dose: 300 mg Hydroxyzine HCl (Hydroxyzine Hcl 25 Mg Tablet) 25 mg PO Q6H PRN PRN Reason: Anxiety Last Admin: 09/01/24 00:53 Dose: 25 mg Lactulose (Lactulose 20 Gm/30 Ml Solution) 30 gm PO BID [facility] Last Admin: 09/01/24 08:22 Dose: 30 gm Magnesium Hydroxide (Milk Of Magnesia 30 Ml Oral.Susp) 30 ml PO DAILY PRN PRN Reason: Constipation Melatonin (Melatonin 3 Mg Tablet) 3 mg PO BEDTIME PRN PRN Reason: Insomnia Last Admin: 09/01/24 00:53 Dose: 3 mg Midodrine (Midodrine Hcl 2.5 Mg Tablet) 2.5 mg PO BID [facility] Last Admin: 09/01/24 08:22 Dose: Not Given Multivitamins/Vitamin C (Multivitamin Tablet) 1 tab PO DAILY [facility] Last Admin: 09/01/24 08:23 Dose: 1 tab Naltrexone HCl (Naltrexone Hcl 50 Mg Tablet) 50 mg PO DAILY [facility] Last Admin: 09/01/24 08:23 Dose: 50 mg Nicotine (Nicotine 14 Mg Patch.Td24) 14 mg TRANSDERMA DAILY PRN PRN Reason: nicotine craving Last Admin: 09/01/24 08:34 Dose: 14 mg Nicotine Polacrilex (Nicotine Polacrilex 2 Mg Gum) 4 mg BUCCAL Q2H PRN PRN Reason: Nicotine Cravings Perphenazine (Perphenazine 4 Mg Tablet) 4 mg PO BID [facility] Last Admin: 09/01/24 08:23 Dose: Not Given Propranolol HCl (Propranolol Hcl 10 Mg Tablet) 10 mg PO TID [facility] Last Admin: 09/01/24 08:24 Dose: 10 mg Senna (Sennosides 8.6 Mg Tablet) 17.2 mg PO BID [facility] Last Admin: 09/01/24 08:25 Dose: 17.2 mg Trazodone HCl (Trazodone Hcl 50 Mg Tablet) 50 mg PO BEDTIME MRX1 PRN PRN Reason: Insomnia Allergies Allergies Allergy/AdvReac Type Severity Reaction Status Date / Time fluvoxamine [From Luvox] Allergy Unknown Unknown Verified 07/26/24 23:04 lamotrigine [From Lamictal] Allergy Unknown unk Verified 07/26/24 23:04 latex Allergy Unknown unk Verified 07/26/24 23:04 levothyroxine Allergy Unknown unk Verified 07/26/24 23:04 levothyroxine sodium Allergy Unknown unk Verified 07/26/24 23:04 [From Levoxyl] paroxetine [From Paxil] Allergy Unknown unk Verified 07/26/24 23:04 pollen extracts Allergy Unknown unk Verified 07/26/24 23:04 red dye Allergy Unknown Unknown Verified 07/26/24 23:04 Assessment & Plan Assessment & Plan (1) Schizoaffective disorder, bipolar type: Status: Acute Code(s): F25.0 - Schizoaffective disorder, bipolar type (2) Borderline personality disorder: Status: Acute Code(s): F60.3 - Borderline personality disorder (3) PTSD (post-traumatic stress disorder): Status: Chronic Code(s): F43.10 - Post-traumatic stress disorder, unspecified (4) Alcohol use disorder: Status: Acute Code(s): F10.90 - Alcohol use, unspecified, uncomplicated (5) Polysubstance abuse: Status: Acute Code(s): F19.10 - Other psychoactive substance abuse, uncomplicated Plan Patient is a 33-year-old female with history of schizoaffective disorder, PTSD, ADHD, borderline personality disorder, alcohol use disorder and polysubstance use disorder who presented to ER from a substance abuse treatment program while on a section 35 due to superficially cutting her wrist secondary to increased anxiety. Plan: CV 15 minute safety checks Continue previous medications Encourage groups Obtain collateral Discharge planning 08/31: Signed 3 day. Pt reports feeling her anxiety has improved since being here. slept 4 hours per nursing. Pt began demanding to be discharged; pt stated, I don't need to be here. This is fucking stupid. I need to leave today. You need to discharge me now! When notified she would not be discharged today, pt became agitated and began throwing items, knocking things over. Restraint was ordered, please see note. Placed on fresh air restriction. 09/01: Active on unit, social with peers. continues on 1:1. Pt reports she feels that her mind is racing; refusing trilafon. Pt requesting to start Abilify, reports being beneficial in the past. Does not want to take trilafon; she believes it does not help and has been refusing. Start: Abilify 10mg PO daily. DC trilafon. Requesting to be taken off 1:1; was notified she would be taken off once she is able to stay in behavioral control for 24 hours. denies SI/HI/VH/AH. Patient educated on: diagnosis, medication risk/benefits and therapeutic strategies Reason for continued inpatient stay Substantial Risk for: med/psych decompensation Time Spent With Patient Time: Total time managing care of this patient today _20___ minutes.
[2024-09-01] MEDS: cloNIDine HCL 0.1 MG TABLET PO (11:58)
--- NOTE | 2024-09-01 15:11 | HO.PSYEVENT ---
Documented by User: Emani Kessler NP 09/01/24 15:26 Event Note Date of Service: 09/01/24 Psych Restraint Event Note: At 1505 nursing reported pt started writing on the mera, unable to be redirected, RN went to speak with pt in side office on unit. Pt flipped table on it's side, came out and started pushing chairs in common area and stating she wants to put something in the electrical socket. Medications ordered. Haldol 5mg IM, Ativan 1mg, Benadryl 50mg IM. nursing to monitor. Time Spent With Patient Time: Total time managing care of this patient today _10___ minutes. Documented by User: Obi Whiteside MD 09/01/24 15:47 Event Note Date of Service: 09/01/24
[2024-09-01] MEDS: LORazepam 2 MG/ML VIAL 1 MG IM (15:23)
[2024-09-01] MEDS: diphenhydrAMINE HCL 50 MG/ML VIAL IM (15:23)
[2024-09-01] MEDS: Haloperidol Lactate 5 MG/ML VIAL IM (15:24)
--- NOTE | 2024-09-01 15:48 | HO.BHRESTREX ---
Behavioral Restraint Exam Behavioral Health Restraint Exam Type of Restraint: Mechanical Reason for Restraint: Occurrence of self-harming or suicidal behavior as evidenced by: (threatening to put metal in electrical socket) Medical Concerns for Restraint: No medical concerns, pt w/o acute inj / no noted resp/VS abnormalities Behavioral Assessment / Plan: No further behavioral concerns, continue current plan. Comment: pt seen 1530 seems calm more reflective vital signs unremarkable to physical complaints alert and awake
--- NOTE | 2024-09-01 16:34 | PC.NURSE ---
Patient increasingly agitated, upset she was not allowed (per unit guidelines) to have another peers clothing. Started to stab table with pen, write on mera, unreceptive to redirection or limit setting. Reported feeling angry, feeling like getting into mischief . Offered PRN, music, pacing, medication, quiet space and 1:1. Patient in side office, flipped table on it's side. Expressed desire to put something in electrical socket, entered dining area and started pushing several chairs around common area. Patient placed in restraint chair. Orders obtained. Medicated with Haldol 5mg, Ativan 1mg and Benadryl 50mg IM.
[2024-09-02] VITALS (7 sets, daily range): BP systolic 98–104; BP diastolic 58–72; PULSE 73–81; RESP 14–18; TEMP 36.4–36.8; O2SAT 99–100
[2024-09-02] MEDS: hydrOXYzine HCL 25 MG TABLET PO (02:18)
[2024-09-02] MEDS: cloNIDine HCL 0.1 MG TABLET PO (02:18)
--- NOTE | 2024-09-02 06:09 | PC.NURSE ---
on rising reported ''i'M GOING TO TRY TO USE MY COPING SKILLS TODAY'' ''
--- NOTE | 2024-09-02 09:13 | HO.PSYEVENT ---
Documented by User: Emani Kessler NP 09/02/24 15:01 Event Note Date of Service: 09/02/24 Psych Restraint Event Note: at 0855 T/W was notified by nursing that patient had became agitated, broke unit phone and was needed restraint orders d/t agitation. Haldol 5mg IM, Ativan 2mg IM and Benadryl 50mg IM were ordered. per nursing, pt was placed in 4 point restraints. nursing to monitor. Pt reported hurting left index finger during slamming of phone;xray ordered. Time Spent With Patient Time: Total time managing care of this patient today _10___ minutes. Documented by User: Obi Whiteside MD 09/10/24 12:17 Event Note Date of Service: 09/10/24
--- NOTE | 2024-09-02 09:14 | HO.PSYCHPN ---
Subjective Subjective Date of Service: 09/02/24 Reason For Visit: Schizoaffective disorder, alcohol use disorder Subjective Notes: 3 Day Interim History: Active on unit, social with peers. continues on 1:1. Per nursing, pt had difficult time this morning after hearing a peer discuss discharging tomorrow morning. Pt was on phone when she began slamming phone, which broke and needed restraint d/t agitation (please see restraint note). After pt was taken out of restraints, she began requesting to be taken off 1:1; was notified she would be taken off once she is able to stay in behavioral control for 24 hours. X-ray ordered for left index finger after pt reported hurting finger while slamming phone. denies SI/HI/VH/AH. Medication Compliance: Yes Side effects from medications: No Attending Groups: Yes Review of Systems Constitutional: Reports as per HPI Eyes: Reports as per HPI Reports as per HPI Cardiovascular: Reports as per HPI Respiratory: Reports as per HPI Gastrointestinal: Reports as per HPI Musculoskeletal: Reports as per HPI Skin/Breast: Reports as per HPI Reports as per HPI Psychiatric: Reports as per HPI Endocrine: Reports as per HPI Hematologic/Lymphatic: Reports as per HPI Allergic/Immunologic: Reports as per HPI Mental Status Exam Mental Status Exam Narrative: Pt is alert and oriented; behavior is cooperative; dressed in casual attire; eye contact appropriate; Speech is normal rate, volume; reports racing thoughts. mood described as fine ; focused on discharge. Denies SI/HI/VH/AH. Diagnostics Vital Signs (24Hr): Vital Signs - 24 hr 09/01/24 11:55 09/01/24 11:58 09/01/24 20:00 Temperature 97.8 F Pulse Rate 71 83 Respiratory Rate 18 16 Blood Pressure 99/67 99/67 109/69 Pulse Oximetry 98 Oxygen Delivery Method Room Air 09/01/24 20:33 09/01/24 20:34 09/02/24 02:18 Temperature Pulse Rate 83 Respiratory Rate Blood Pressure 109/69 109/69 101/58 L Pulse Oximetry Oxygen Delivery Method 09/02/24 07:15 Temperature 97.6 F Pulse Rate 75 Respiratory Rate 14 Blood Pressure 98/69 Pulse Oximetry 99 Oxygen Delivery Method Room Air BMI result Body Mass Index 27.2 Medications Medications Current Medications Acetaminophen (Acetaminophen 325 Mg Tablet) 650 mg PO Q6H PRN PRN Reason: Headache/Pain Mild Scale (1-3) Al Hydroxide/Mg Hydroxide (Magnesium Hydrox/Alum Hydrox 30 Ml Oral.Susp) 30 ml PO Q6H PRN PRN Reason: Heartburn/Nausea Aripiprazole (Aripiprazole 10 Mg Tablet) 10 mg PO DAILY [facility] Chlorpromazine HCl (Chlorpromazine Hcl 100 Mg Tablet) 100 mg PO TID PRN PRN Reason: Agitation Last Admin: 08/31/24 20:22 Dose: 100 mg Clonidine HCl (Clonidine Hcl 0.1 Mg Tablet) 0.1 mg PO Q6H PRN; Protocol PRN Reason: Anxiety Last Admin: 09/02/24 02:18 Dose: 0.1 mg Clonidine HCl (Clonidine Hcl 0.2 Mg Tablet) 0.2 mg PO BID [facility]; Protocol Last Admin: 09/01/24 20:33 Dose: 0.2 mg Disulfiram (Disulfiram 250 Mg Tablet) 250 mg PO DAILY [facility] Last Admin: 09/01/24 08:21 Dose: 250 mg Gabapentin (Gabapentin 300 Mg Capsule) 300 mg PO TID [facility] Last Admin: 09/01/24 20:33 Dose: 300 mg Hydroxyzine HCl (Hydroxyzine Hcl 25 Mg Tablet) 25 mg PO Q6H PRN PRN Reason: Anxiety Last Admin: 09/02/24 02:18 Dose: 25 mg Lactulose (Lactulose 20 Gm/30 Ml Solution) 30 gm PO BID [facility] Last Admin: 09/01/24 20:33 Dose: 30 gm Magnesium Hydroxide (Milk Of Magnesia 30 Ml Oral.Susp) 30 ml PO DAILY PRN PRN Reason: Constipation Melatonin (Melatonin 3 Mg Tablet) 3 mg PO BEDTIME PRN PRN Reason: Insomnia Last Admin: 09/01/24 00:53 Dose: 3 mg Midodrine (Midodrine Hcl 2.5 Mg Tablet) 2.5 mg PO BID [facility] Last Admin: 09/01/24 21:13 Dose: Not Given Multivitamins/Vitamin C (Multivitamin Tablet) 1 tab PO DAILY [facility] Last Admin: 09/01/24 08:23 Dose: 1 tab Naltrexone HCl (Naltrexone Hcl 50 Mg Tablet) 50 mg PO DAILY [facility] Last Admin: 09/01/24 08:23 Dose: 50 mg Nicotine (Nicotine 14 Mg Patch.Td24) 14 mg TRANSDERMA DAILY PRN PRN Reason: nicotine craving Last Admin: 09/01/24 08:34 Dose: 14 mg Nicotine Polacrilex (Nicotine Polacrilex 2 Mg Gum) 4 mg BUCCAL Q2H PRN PRN Reason: Nicotine Cravings Propranolol HCl (Propranolol Hcl 10 Mg Tablet) 10 mg PO TID [facility] Last Admin: 09/01/24 20:34 Dose: 10 mg Senna (Sennosides 8.6 Mg Tablet) 17.2 mg PO BID [facility] Last Admin: 09/01/24 20:34 Dose: 17.2 mg Trazodone HCl (Trazodone Hcl 50 Mg Tablet) 50 mg PO BEDTIME MRX1 PRN PRN Reason: Insomnia Allergies Allergies Allergy/AdvReac Type Severity Reaction Status Date / Time fluvoxamine [From Luvox] Allergy Unknown Unknown Verified 07/26/24 23:04 lamotrigine [From Lamictal] Allergy Unknown unk Verified 07/26/24 23:04 latex Allergy Unknown unk Verified 07/26/24 23:04 levothyroxine Allergy Unknown unk Verified 07/26/24 23:04 levothyroxine sodium Allergy Unknown unk Verified 07/26/24 23:04 [From Levoxyl] paroxetine [From Paxil] Allergy Unknown unk Verified 07/26/24 23:04 pollen extracts Allergy Unknown unk Verified 07/26/24 23:04 red dye Allergy Unknown Unknown Verified 07/26/24 23:04 Assessment & Plan Assessment & Plan (1) Schizoaffective disorder, bipolar type: Status: Acute Code(s): F25.0 - Schizoaffective disorder, bipolar type (2) Borderline personality disorder: Status: Acute Code(s): F60.3 - Borderline personality disorder (3) PTSD (post-traumatic stress disorder): Status: Chronic Code(s): F43.10 - Post-traumatic stress disorder, unspecified (4) Alcohol use disorder: Status: Acute Code(s): F10.90 - Alcohol use, unspecified, uncomplicated (5) Polysubstance abuse: Status: Acute Code(s): F19.10 - Other psychoactive substance abuse, uncomplicated Plan Patient is a 33-year-old female with history of schizoaffective disorder, PTSD, ADHD, borderline personality disorder, alcohol use disorder and polysubstance use disorder who presented to ER from a substance abuse treatment program while on a section 35 due to superficially cutting her wrist secondary to increased anxiety. Plan: CV 15 minute safety checks Continue previous medications Encourage groups Obtain collateral Discharge planning 08/31: Signed 3 day. Pt reports feeling her anxiety has improved since being here. slept 4 hours per nursing. Pt began demanding to be discharged; pt stated, I don't need to be here. This is fucking stupid. I need to leave today. You need to discharge me now! When notified she would not be discharged today, pt became agitated and began throwing items, knocking things over. Restraint was ordered, please see note. Placed on fresh air restriction. 09/01: Active on unit, social with peers. continues on 1:1. Pt reports she feels that her mind is racing; refusing trilafon. Pt requesting to start Abilify, reports being beneficial in the past. Does not want to take trilafon; she believes it does not help and has been refusing. Start: Abilify 10mg PO daily. DC trilafon. Requesting to be taken off 1:1; was notified she would be taken off once she is able to stay in behavioral control for 24 hours. denies SI/HI/VH/AH. 09/02: Active on unit, social with peers. continues on 1:1. Per nursing, pt had difficult time this morning after hearing a peer discuss discharging tomorrow morning. Pt was on phone when she began slamming phone, which broke and needed restraint d/t agitation (please see restraint note). After pt was taken out of restraints, she began requesting to be taken off 1:1; was notified she would be taken off once she is able to stay in behavioral control for 24 hours. X-ray ordered for left index finger after pt reported hurting finger while slamming phone. denies SI/HI/VH/AH. Patient educated on: diagnosis, medication risk/benefits and therapeutic strategies Reason for continued inpatient stay Substantial Risk for: med/psych decompensation Time Spent With Patient Time: Total time managing care of this patient today _20___ minutes.
[2024-09-02] MEDS: Haloperidol Lactate 5 MG/ML VIAL IM (09:15)
[2024-09-02] MEDS: diphenhydrAMINE HCL 50 MG/ML VIAL IM (09:15)
[2024-09-02] MEDS: LORazepam 2 MG/ML VIAL IM (09:15)
[2024-09-02] MEDS: Disulfiram 250 MG TABLET PO (10:40)
[2024-09-02] MEDS: Sennosides 8.6 MG TABLET 17.2 MG PO ×2 (10:40→20:30)
[2024-09-02] MEDS: Propranolol HCL 10 MG TABLET PO ×3 (10:41→20:30)
[2024-09-02] MEDS: cloNIDine HCL 0.2 MG TABLET PO ×2 (10:41→20:29)
[2024-09-02] MEDS: Gabapentin 300 MG CAPSULE PO ×3 (10:41→20:30)
[2024-09-02] MEDS: ARIPiprazole 10 MG TABLET PO (10:41)
[2024-09-02] MEDS: Naltrexone HCl 50 MG TABLET PO (10:42)
[2024-09-02] MEDS: Lactulose 20 GM/30 ML SOLUTION 30 GM PO ×2 (10:42→20:28)
[2024-09-02] MEDS: Multivitamin TABLET 1 TAB PO (10:42)
[2024-09-02] MEDS: Nicotine 14 MG PATCH.TD24 TRANSDERMA (10:47)
--- NOTE | 2024-09-02 11:07 | PC.NURSE ---
Patient talking on phone, became increasingly agitated, overheard yelling about discharge referencing disposition placement. Started to slam phone on mergers and acquisitions associate and telephone box repeatedly, breaking the phone. Unable to stop with verbal redirection. Wouldn't move away from area. Physical hold to stop. Patient then began to flail arms and resist. C/O pain and swelling in finger following incident. Physical escort to anti room. Placed in 4 point mechanical restraint. Orders obtained. IM medication administered to R and L gluteus.
[2024-09-02] MEDS: traZODone HCL 50 MG TABLET PO (20:30)
[2024-09-03 08:00] VITALS: BP 102/63; PULSE 70; TEMP 37.2; O2SAT 99
[2024-09-03] MEDS: Naltrexone HCl 50 MG TABLET PO (08:38)
[2024-09-03] MEDS: Sennosides 8.6 MG TABLET 17.2 MG PO (08:38)
[2024-09-03 08:39] VITALS: BP 102/63
[2024-09-03] MEDS: Disulfiram 250 MG TABLET PO (08:39)
[2024-09-03] MEDS: Gabapentin 300 MG CAPSULE PO ×2 (08:39→14:03)
[2024-09-03] MEDS: cloNIDine HCL 0.2 MG TABLET PO (08:39)
[2024-09-03] MEDS: ARIPiprazole 10 MG TABLET PO (08:39)
[2024-09-03] MEDS: Multivitamin TABLET 1 TAB PO (08:39)
[2024-09-03] MEDS: Lactulose 20 GM/30 ML SOLUTION 30 GM PO (08:40)
[2024-09-03 09:05] VITALS: BP 102/63; PULSE 70
[2024-09-03] MEDS: Propranolol HCL 10 MG TABLET PO ×2 (09:05→14:03)
[2024-09-03] MEDS: Nicotine 14 MG PATCH.TD24 TRANSDERMA (09:09)
--- NOTE | 2024-09-03 11:51 | P.DS_ITS ---
DS: Providers Provider Date of Service: 09/03/24 Date of admission: 08/30/24 00:23 Primary care physician: Unknown Physician Consults: 08/30/24 01:02 Consult to Hospitalist Routine Comment: Consulting Provider: [facility] Hospitalists Reason For Exam: medical H&P 08/30/24 02:19 Addiction Medicine Routine Consulting Provider: Addiction Covering Reason for consultation: Patient admitted from a [facility] Program where she had been Section 35 Has provider been notified: No 08/31/24 21:07 Consult to Hospitalist Stat Comment: Consulting Provider: [facility] Hospitalists Reason For Exam: restraint DS: Diagnosis Discharge Diagnosis (1) Schizoaffective disorder, bipolar type: Status: Acute (2) Borderline personality disorder: Status: Acute (3) PTSD (post-traumatic stress disorder): Status: Chronic (4) Alcohol use disorder: Status: Acute (5) Polysubstance abuse: Status: Acute DS: Medications Discharge Medications Home Medications: Home Medications ?Medication ?Instructions ?Recorded ?Confirmed acetaminophen 325 mg tablet 650 mg PO Q4H PRN mild to moderate 07/27/24 08/30/24 pain or fever aluminum-mag hydroxide-simethicone 30 ml PO QID PRN GI upset 07/27/24 08/30/24 200 mg-200 mg-20 mg/5 mL oral susp clonidine HCl 0.1 mg tablet 0.1 mg PO Q6H PRN Anxiety 07/27/24 08/30/24 ivabradine 5 mg tablet 5 mg PO BID 07/27/24 08/30/24 ergocalciferol (vitamin D2) 25,000 50,000 unit PO QWEEK 08/30/24 08/30/24 unit capsule hydroxyzine pamoate 50 mg capsule 50 mg PO Q4H PRN Agitation 08/30/24 08/30/24 magnesium hydroxide 800 mg/5 mL 2,400 mg PO BID PRN Constipation 08/30/24 08/30/24 oral suspension multivitamin 1 tab PO DAILY 08/30/24 08/30/24 sodium phosphates 19 gram-7 118 ml SD DAILY PRN Constipation 08/30/24 08/30/24 gram/118 mL enema (Fleet Enema) Previous Rx's ?Medication ?Instructions ?Recorded aripiprazole 10 mg tablet 10 mg PO DAILY 30 days #30 tabs 09/03/24 chlorpromazine 100 mg tablet 100 mg PO DAILY PRN Agitation 30 09/03/24 days #30 tabs clonidine HCl 0.2 mg tablet 0.2 mg PO BID 30 days #60 tabs 09/03/24 disulfiram 250 mg tablet 250 mg PO DAILY 30 days #30 tabs 09/03/24 gabapentin 300 mg capsule 300 mg PO TID 30 days #90 caps 09/03/24 melatonin 3 mg capsule 3 mg PO BEDTIME PRN Insomnia 30 09/03/24 days #30 caps naltrexone 50 mg tablet 50 mg PO DAILY 30 days #30 tabs 09/03/24 sennosides 8.6 mg-docusate sodium 2 tab-cap (2 x 8.6-50 mg) PO BID 09/03/24 50 mg tablet (Senna with Docusate 30 days #120 tabs Sodium) trazodone 50 mg tablet 50 mg PO BEDTIME MRX1 PRN Insomnia 09/03/24 30 days #60 tabs Mental Status Exam Mental Status Exam Narrative: Pt is alert and oriented; behavior is cooperative; dressed in casual attire; eye contact appropriate; Speech is normal rate, volume. mood described as good; focused on discharge. Denies SI/HI/VH/AH. Data Imaging Diagnostic Imaging Impressions Hand X-Ray 09/02/24 10:55 IMPRESSION: Normal left hand. Electronically signed by: Dannie King MD 09/02/2024 05:19 PM [facility] DS: Summary Hospital Course Hospital Course: per 08/30 admission note: HPI Subjective Notes: Madsen Warning and Conditional Voluntary Narrative: Patient is a 33-year-old female with history of schizoaffective disorder, PTSD, ADHD, borderline personality disorder, alcohol use disorder and polysubstance use disorder who presented to ER from a substance abuse treatment program while on a section 35 due to superficially cutting her wrist secondary to increased anxiety. Per crisis report, patient presented to ER from [facility] due to self-harming. Patient was cutting right wrist yesterday with a toothpaste container, head banging and refusing medications. She reported paranoia and auditory hallucinations. Patient was on a section 35 at [facility] in [place] for about 10 days; the plan was for her to either go to a sober home or another program. Patient has a [facility] worker and providers through [facility] and [facility]. denies SI/HI. During admission assessment, patient presents alert and oriented x3. Calm and cooperative. Patient reports she was at a treatment program on a section 35 and began superficially cutting her wrist due to increased anxiety and racing thoughts. Patient reports she has not been taking her mood stabilizer due to feeling like she does not need it . Patient reports sleeping and eating well. She reports history of alcohol use a month ago; drinking a sleeve daily. Patient reports history of using ketamine, acid, mushrooms. She reports last using in July. denies SI/HI/VH/AH. Patient reports crisis report is not accurate and she was not experiencing auditory or visual hallucinations. Past Psychiatric History: History of multiple inpatient psychiatric hospitalizations. History of attending [facility]. History of attending DBT programs. pt reports hx of SA in her 20s. Trials: Ambien x 1 year-effective; Kempner- It made me shake, but I felt better. , Depakote-increase in agitation, Olanzapine- it works , Thorazine- make a note that I am NOT allergic to it-it works, what I did was stay out in the sun too long when I took it and got a rash-if I take it an stay out of the sun it is OK and it works very well , Lamictal-rash Medical Evaluation Reviewed: Yes [facility] Medical History (Updated 08/30/24 @ 15:27 by Emani Kessler NP) TBI (traumatic brain injury) PTSD (post-traumatic stress disorder) Schizoaffective disorder, bipolar type Postural orthostatic tachycardia syndrome Insomnia Colitis Family History: Denies Social History: homeless, single. no children. disability. highschool diploma. Substance History: pt reports hx of drinking a sleeve of nips daily. hx of ketamine, acid and mushrooms; states she has not used since July. Trauma History: affirms Precis: Patient is a 33-year-old female with history of schizoaffective disorder, PTSD, ADHD, borderline personality disorder, alcohol use disorder and polysubstance use disorder who presented to ER from a substance abuse treatment program while on a section 35 due to superficially cutting her wrist secondary to increased anxiety. 08/30: Continue previous medications. Encourage groups. Obtain collateral. Discharge planning. 08/31: Signed 3 day. Pt reports feeling her anxiety has improved since being here. slept 4 hours per nursing. Pt began demanding to be discharged; pt stated, I don't need to be here. This is fucking stupid. I need to leave today. You need to discharge me now! When notified she would not be discharged today, pt became agitated and began throwing items, knocking things over. Restraint was ordered, please see note. Placed on fresh air restriction. 09/01: Active on unit, social with peers. continues on 1:1. Pt reports she feels that her mind is racing; refusing trilafon. Pt requesting to start Abilify, reports being beneficial in the past. Does not want to take trilafon; she believes it does not help and has been refusing. Start: Abilify 10mg PO daily. DC trilafon. Requesting to be taken off 1:1; was notified she would be taken off once she is able to stay in behavioral control for 24 hours. denies SI/HI/VH/AH. 09/02: Active on unit, social with peers. continues on 1:1. Per nursing, pt had difficult time this morning after hearing a peer discuss discharging tomorrow morning. Pt was on phone when she began slamming phone, which broke and needed restraint d/t agitation (please see restraint note). After pt was taken out of restraints, she began requesting to be taken off 1:1; was notified she would be taken off once she is able to stay in behavioral control for 24 hours. X-ray ordered for left index finger after pt reported hurting finger while slamming phone. denies SI/HI/VH/AH. 09/03: pt able to maintain behavioral control the past 24H. calm, cooperative, denying any safety issues. meds reviewed, reconciled, prescribed. pt discharged to home as per plan. Time Spent with Patient Time attestation: Total time managing care of this patient today __35__ minutes. Discharge Plan Discharge Anticipated Discharge Date/Time: 09/03/24 12:30 Patient Disposition: Home, Self-Care Discharge Diagnosis: Schizoaffective Disorder, Bipolar Type TBI PTSD, Chronic Polysubstance Use Disorder Referrals: Hector Dumont MD. [Other] - 09/10/24 2:30 pm ( ) Discharge Medications: New trazodone 50 mg Tablet 50 mg PO BEDTIME MRX1 PRN (Reason: Insomnia) 30 Days Qty: 60 0RF aripiprazole 10 mg Tablet 10 mg PO DAILY 30 Days Qty: 30 0RF sennosides-docusate sodium [Senna with Docusate Sodium] 8.6-50 mg tablet 2 tab-cap PO BID 30 Days Qty: 120 0RF Continued clonidine HCl 0.1 mg Tablet 0.1 mg PO Q6H PRN (Reason: Anxiety) Rx Instructions: hold for BP<100/60 or HR<60 acetaminophen 325 mg Tablet 650 mg PO Q4H MDD 3,000mg/24hrs PRN (Reason: mild to moderate pain or fever) alum-mag hydroxide-simeth 200-200-20 mg/5 mL Suspension 30 ml PO QID PRN (Reason: GI upset) Rx Instructions: administer between meals and at bedtime ivabradine 5 mg Tablet 5 mg PO BID Rx Instructions: must administer with a meal/food multivitamin Tablet 1 tab PO DAILY hydroxyzine pamoate 50 mg Capsule 50 mg PO Q4H PRN (Reason: Agitation) magnesium hydroxide 800 mg/5 mL Suspension 2,400 mg PO BID PRN (Reason: Constipation) ergocalciferol (vitamin D2) 25,000 unit Capsule 50,000 unit PO QWEEK Fleet Enema 19-7 gram/118 mL Enema 118 ml SD DAILY PRN (Reason: Constipation) naltrexone 50 mg Tablet 50 mg PO DAILY 30 Days Qty: 30 0RF disulfiram 250 mg Tablet 250 mg PO DAILY 30 Days Qty: 30 0RF Rx Instructions: antabuse was out of stock so it was not given at [facility] clonidine HCl 0.2 mg Tablet 0.2 mg PO BID 30 Days Qty: 60 0RF gabapentin 300 mg Capsule 300 mg PO TID 30 Days Qty: 90 0RF melatonin 3 mg Capsule 3 mg PO BEDTIME PRN (Reason: Insomnia) 30 Days Qty: 30 0RF Changed chlorpromazine 100 mg Tablet 100 mg PO DAILY PRN (Reason: Agitation) 30 Days Qty: 30 0RF Discontinued trazodone 100 mg Tablet 100 mg PO BEDTIME PRN (Reason: Insomnia) perphenazine 4 mg Tablet 4 mg PO BID PRN (Reason: Psychosis) Patient Comments: Per RN at [facility] this caused sedation nicotine [Nicoderm] 21 mg/24 hr Patch 24 Hour 1 patch transdermal DAILY sennosides 17.2 mg Tablet 17.2 mg PO BID lactulose 20 gram/30 mL Solution 30 g PO BID Discharge Orders: Discharge Order (Routine); Ordered 09/03/24 Ordered By: Srini Marques Diet: Advance to usual diet Activity on Discharge: As tolerated Stand Alone Forms: Patient Portal Discharge page, Community Support Print Language: Khmer Care Plan Goals: remain safe, stable, and sober in the outpatient treatment setting Health Concerns: none Plan of Treatment: take medications as prescribed; establish mental health and substance use treatment in your area. Assessment: not at imminent risk of harm to self or others
[2024-09-03 14:03] VITALS: BP 101/66; PULSE 80
== END 2024-09-03 15:15 | disposition home or self-care (01) | DRG 885 ==
PROVIDERS: Admitting Provider Psychiatry & Neurology Psychiatry; Visit Provider Psychiatry & Neurology Psychiatry
DX: F25.0 Schizoaffective disorder, bipolar type (principal); F17.210 Nicotine dependence, cigarettes, uncomplicated; Z71.6 Tobacco abuse counseling; G62.9 Polyneuropathy, unspecified; F60.3 Borderline personality disorder; F43.12 Post-traumatic stress disorder, chronic; Z87.820 Personal history of traumatic brain injury; F10.90 Alcohol use, unspecified, uncomplicated; F19.10 Other psychoactive substance abuse, uncomplicated; F90.9 Attention-deficit hyperactivity disorder, unspecified type; K59.09 Other constipation; Z78.1 Physical restraint status; Z91.52 Personal history of nonsuicidal self-harm; Z79.899 Other long term (current) drug therapy
CPT/HCPCS: 73130; J1200; J1630; J2060

== ENCOUNTER → 2024-08-30 00:23 | Outpatient (BNV) | payer OTHER, SELFPAY | PROVIDERS: Admitting Provider Psychiatry & Neurology Psychiatry; Visit Provider Student in an Organized Health Care Education/Training Program | DX: G90.A Postural orthostatic tachycardia syndrome [POTS] (principal); I95.1 Orthostatic hypotension | CPT/HCPCS: 99222; 99499 ==

== ENCOUNTER → 2024-08-30 00:23 | Outpatient (BNV) | payer OTHER, SELFPAY | PROVIDERS: Admitting Provider Psychiatry & Neurology Psychiatry; Visit Provider Registered Nurse | DX: F60.3 Borderline personality disorder (principal); F25.0 Schizoaffective disorder, bipolar type; F43.11 Post-traumatic stress disorder, acute; F10.90 Alcohol use, unspecified, uncomplicated | CPT/HCPCS: 90792; 99232; 99239; 99499 ==